=== PATIENT | female | born 1935 | race Caucasian/White ===

== ENCOUNTER 2018-03-05 16:27 | Emergency (ER) | payer MEDICARE ==
--- NOTE | 2018-03-05 18:38 | ED ---
Complex/Multi-Sys Presentation - HPI Summary HPI Summary: 82 field presents to ED brought in by ambulance after sustaining a fall while at nursing facility around 4 PM today. It was a witnessed fall was mechanical patient tripped over something on the ground and fell forward landing on her knees and hitting her face on the carpeted floor. She sustained an abrasion to left cheek. Denies any pain. No loss of consciousness. Patient does have Alzheimer's. Normal mentation per nursing staff and daughter. Acting appropriately. Is not on blood thinners. No complaints of pain otherwise. No nausea or vomiting. No vision changes. No epistaxis. - History Of Current Complaint Chief Complaint: EDGeneral Time Seen by Provider: 03/05/18 17:50 Hx Obtained From: Patient, Family/Salesperson Meats - Daughter and nursing facility manager flight Onset/Duration: Sudden Onset Timing: Intermittent, Lasting:, Minutes Severity Currently: None Severity Initially: Mild Location: Negative Character: Unable To Describe - none Aggravating Factor(s): none Alleviating Factor(s): none Associated Signs And Symptoms: Negative: Syncope, Headache, Nausea, Vomiting - Allergies/Home Medications Allergies/Adverse Reactions: Allergies Allergy/AdvReac Type Severity Reaction Status Date / Time midazolam Allergy Unknown Verified 03/05/18 17:13 Reaction Details Home Medications: Home Medications Acetaminophen [Acetaminophen Extra Strength] 500 mg PO BID 03/05/18 [History Confirmed 03/05/18] Amiodarone TAB* [Cordarone TAB*] 100 mg PO QAM 03/05/18 [History Confirmed 03/05] Aspirin EC TAB* [Ecotrin EC Low Dose 81 MG*] 81 mg PO DAILY 03/05/18 [History Confirmed 03/05/18] Carvedilol TAB* [Coreg TAB*] 6.25 mg PO BID 03/05/18 [History Confirmed 03/05/18 ] Cholecalciferol TAB* [Vitamin D TAB*] 50,000 unit PO MONTHLY 03/05/18 [History Confirmed 03/05/18] Donepezil TAB* [Aricept 5 MG TAB*] 10 mg PO QPM 03/05/18 [History Confirmed ] Folic Acid TAB* [Folvite TAB*] 1 mg PO QAM 03/05/18 [History Confirmed 03/05/18] Furosemide TAB* [Lasix TAB*] 20 mg PO QAM 03/05/18 [History Confirmed 03/05/18] Methotrexate TAB* 7.5 mg PO WEEKLY 03/05/18 [History Confirmed 03/05/18] Omeprazole CAP* [Prilosec CAP* 20 MG] 20 mg PO DAILY 03/05/18 [History Confirmed 03/05/18] PARoxetine HCL TAB* [Paxil TAB*] 10 mg PO DAILY 03/05/18 [History Confirmed ] Simvastatin TAB(NF) [Zocor(NF)] 20 mg PO DAILY 03/05/18 [History Confirmed 03/05] amLODIPine TAB* [Norvasc 5 mg TAB*] 5 mg PO DAILY 03/05/18 [History Confirmed ] glipiZIDE TAB* [Glucotrol TAB*] 10 mg PO BID 03/05/18 [History Confirmed ] PMH/Surg Hx/FS Hx/Imm Hx Endocrine/Hematology History: Reports: Hx Anticoagulant Therapy, Hx Diabetes - TYPE II- ON ORAL MEDICATION Denies: Hx Thyroid Disease Cardiovascular History: Reports: Hx Congestive Heart Failure - X 1 - TREATED FOR 1 1/2 YEARS AGO-ON MEDICATION FOR, Hx Hypercholesterolemia, Hx Hypertension - ON MEDICATION FOR, Other Cardiovascular Problems/Disorders - ATRIAL FIBRILLATION- AT THE TIME OF CONGESTIVE HEART FAILURE Respiratory History: Denies: Hx Asthma, Hx Chronic Obstructive Pulmonary Disease (COPD) GI History: Reports: Hx Gastroesophageal Reflux Disease - PRILOSEC Denies: Hx Ulcer Musculoskeletal History: Reports: Hx Arthritis - rheumatoid arthritis ON METHOTREXATE, Hx Rheumatoid Arthritis, Other Musculoskeletal History - rheumatoid arthritis ON METHOTREXATE Denies: Hx Osteoporosis Sensory History: Reports: Hx Cataracts - had cataract sx both eyes Denies: Hx Contacts or Glasses, Hx Hearing Aid Opthamlomology History: Reports: Hx Cataracts - had cataract sx both eyes Denies: Hx Contacts or Glasses Neurological History: Reports: Hx Dementia, Other Neuro Impairments/Disorders - ALZHEIMERS DISEASE Psychiatric History: Reports: Hx Depression - HX r/t ALZHEIMERS- DAUGHTERS STATES NO MEDICATION NOW - Surgical History Surgery Procedure, Year, and Place: total right shoulder replacement. LEFT BROKEN LEG WITH PINNING. R eye cataract surgery w new lens (May 2014). L eye catarct sx 2014 Hx Anesthesia Reactions: Yes - VERSED - Immunization History Date of Tetanus Vaccine: Unk Date of Influenza Vaccine: Fall 2012 Infectious Disease History: No Infectious Disease History: Denies: Hx Hepatitis, Hx Human Immunodeficiency Virus (HIV), Traveled Outside the US in Last 30 Days - Family History Known Family History: Positive: None - Social History Alcohol Use: None Substance Use Type: Reports: None Smoking Status (MU): Former Smoker Amount Used/How Often: ? Have You Smoked in the Last Year: No Review of Systems - ROS Summary Review of Systems Summary: asked patient and caregivers Constitutional: Negative ENT: Negative Cardiovascular: Negative Respiratory: Negative Gastrointestinal: Negative Musculoskeletal: Negative Positive: Other - abrasion cheek Neurological: Negative All Other Systems Reviewed And Are Negative: Yes Physical Exam Triage Information Reviewed: Yes Vital Signs On Initial Exam: Initial Vitals Temp Pulse Resp BP Pulse Ox 98.6 F 60 20 132/67 93 03/05/18 16:35 03/05/18 16:35 03/05/18 16:35 03/05/18 16:35 03/05/18 16:35 Vital Signs Reviewed: Yes Completion Of Physical Exam Limited Due To: Dementia Appearance: Positive: Well-Appearing, No Pain Distress, Well-Nourished Skin: Positive: Warm, Skin Color Reflects Adequate Perfusion, Dry, Erythema @ - superficial abrasion noted on left cheek and left forehead, no active bleeding, non tender, slight bruising over the left forehead, no edema.. Negative: Cold, Cyanosis @, Pale Head/Face: Positive: Normal Head/Face Inspection, Other - no racoon eyes or battles signs Eyes: Positive: Normal, EOMI, HECTOR, Conjunctiva Clear ENT: Positive: Normal ENT inspection, Hearing grossly normal, Pharynx normal, TMs normal, Other - Facial bones nontender on palpation. Negative: Nasal congestion, Nasal drainage, TM bulging, TM dull, TM red Neck: Positive: Supple, Nontender Respiratory/Lung Sounds: Positive: Clear to Auscultation, Breath Sounds Present. Negative: Rales, Rhonchi, Fatigue Cardiovascular: Positive: Normal, Pulses are Symmetrical in both Upper and Lower Extremities. Negative: Murmur, Rub Abdomen Description: Positive: Nontender, Soft Bowel Sounds: Positive: Present Musculoskeletal: Positive: Normal, Strength/ROM Intact. Negative: Limited @, Interruption @, Pain @ Neurological: Positive: Normal - acting appropriately for age, Sensory/Motor Intact, CN Intact II-III, Reflexes Intact, NV Bundle Intact Distally, Normal Gait. Negative: Alert, Oriented to Person Place, Time - due to dementia - [place] Coma Scale Best Eye Response: 4 - Spontaneous Best Motor Response: 6 - Obeys Commands Best Verbal Response: 4 - Confused - dementia, patient's baseline Coma Scale Total: 14 Diagnostics - Vital Signs Vital Signs Temp Pulse Resp BP Pulse Ox 03/05/18 16:36 98.6 F 60 18 132/67 93 03/05/18 16:35 98.6 F 60 20 132/67 93 - Laboratory Lab Statement: Any lab studies that have been ordered have been reviewed, and results considered in the medical decision making process. Complex Multi-Symp Course/Dx Course Of Treatment: abrasions irrigated with normal saline, triple antibiotic ointment applied. appears to be without injury. Normal physical exam and baseline mental status. Discussed imaging with daughter however does not appear necessary. Daughter agrees. No significant findings of trauma or deformity. Patient is acting appropriately and moving all extremities without difficulty. Facial bones nontender. No hematoma on scalp. Is not on blood thinners. Aware worsening signs and symptoms to watch out for. Keep wound clean and dry and apply triple antibiotic ointment. No other concerns at this time. Normal vital signs and physical exam. - Diagnoses Differential Diagnoses/HQI/PQRI: Other - Fall, abrasion, head injury, normal exam Provider Diagnoses: Fall, Facial abrasion Discharge - Sign-Out/Discharge Documenting (check all that apply): Discharge - Discharge Plan Condition: Stable Disposition: HOME Patient Education Materials: Fall Prevention for Older Adults (ED), Abrasion ( ED) Referrals: Lynn Whitlock MD [Primary Care Provider] - Additional Instructions: Keep wound clean and dry. Apply triple antibiotic ointment on wound. Any new or worsening symptoms please seek medical attention promptly (vomiting, altered mental status, unequal pupil size etc). Follow up with PCP for re-check in a few days. - Billing Disposition and Condition Condition: STABLE Disposition: HOME
[2018-03-05 19:09] VITALS: BP 122/76
== END 2018-03-05 19:07 | disposition home or self-care (01) ==
LOC: ED 16:27
DX: S00.81XA Abrasion of other part of head, initial encounter (principal); W01.0XXA Fall on same level from slipping, tripping and stumbling without subsequent striking against object, initial encounter; Y93.9 Activity, unspecified; Y92.129 Unspecified place in nursing home as the place of occurrence of the external cause; E11.9 Type 2 diabetes mellitus without complications; Z79.84 Long term (current) use of oral hypoglycemic drugs; I50.9 Heart failure, unspecified; I48.91 Unspecified atrial fibrillation; Z79.01 Long term (current) use of anticoagulants; Z79.82 Long term (current) use of aspirin; E78.00 Pure hypercholesterolemia, unspecified; I10 Essential (primary) hypertension; K21.9 Gastro-esophageal reflux disease without esophagitis; G30.9 Alzheimer's disease, unspecified; F02.80 Dementia in other diseases classified elsewhere, unspecified severity, without behavioral disturbance, psychotic disturbance, mood disturbance, and anxiety; F32.9 Major depressive disorder, single episode, unspecified; Z96.611 Presence of right artificial shoulder joint; Z88.8 Allergy status to other drugs, medicaments and biological substances; Z87.891 Personal history of nicotine dependence
CPT/HCPCS: 99282

== ENCOUNTER 2018-05-19 15:25 | Emergency (ER) | payer MEDICARE ==
[2018-05-19 15:32] VITALS: BP 170/88
[2018-05-19] MEDS ORDERED: Acetaminophen TAB* 325 MG PO ONE (15:38)
--- NOTE | 2018-05-19 16:44 | RAD ---
Indication: Left rib pain. 3 views of left ribs are reviewed. There is deformity of the left ninth and eighth ribs. This appears to BE due to old injury no recent fracture. No pneumothorax is noted. IMPRESSION: Deformity of the left eighth and ninth rib which May BE due to old fracture.
--- NOTE | 2018-05-19 17:25 | ED ---
Savanah Phillips Tenzin, scribed for Talha Medina MD on 05/19/18 at 1541 . Complex/Multi-Sys Presentation - HPI Summary HPI Summary: Pt is an 82 years old here from [facility] via EMS. Per EMS staff, she is c/o left rib pain and increased trouble ambulating. Pt denies fever, chills, or D/V /N. No aggravating factors were noted. At ED, during her physical exam she was able to stand without discomfort. Patient has a hx of Dementia. Pt is a level 5 caveat pt. - History Of Current Complaint Chief Complaint: EDGeneral Time Seen by Provider: 05/19/18 15:28 Hx Obtained From: Patient Associated Signs And Symptoms: Negative: Nausea, Vomiting, Diarrhea, Fever - Allergies/Home Medications Allergies/Adverse Reactions: Allergies Allergy/AdvReac Type Severity Reaction Status Date / Time midazolam Allergy Unknown Verified 03/05/18 17:13 Reaction Details PMH/Surg Hx/FS Hx/Imm Hx Endocrine/Hematology History: Reports: Hx Anticoagulant Therapy, Hx Diabetes - TYPE II- ON ORAL MEDICATION Denies: Hx Thyroid Disease Cardiovascular History: Reports: Hx Congestive Heart Failure - X 1 - TREATED FOR 1 1/2 YEARS AGO-ON MEDICATION FOR, Hx Hypercholesterolemia, Hx Hypertension - ON MEDICATION FOR, Other Cardiovascular Problems/Disorders - ATRIAL FIBRILLATION- AT THE TIME OF CONGESTIVE HEART FAILURE Respiratory History: Denies: Hx Asthma, Hx Chronic Obstructive Pulmonary Disease (COPD) GI History: Reports: Hx Gastroesophageal Reflux Disease - PRILOSEC Denies: Hx Ulcer Musculoskeletal History: Reports: Hx Arthritis - rheumatoid arthritis ON METHOTREXATE, Hx Rheumatoid Arthritis, Other Musculoskeletal History - rheumatoid arthritis ON METHOTREXATE Denies: Hx Osteoporosis Sensory History: Reports: Hx Cataracts - had cataract sx both eyes Denies: Hx Contacts or Glasses, Hx Hearing Aid Opthamlomology History: Reports: Hx Cataracts - had cataract sx both eyes Denies: Hx Contacts or Glasses Neurological History: Reports: Hx Dementia, Other Neuro Impairments/Disorders - ALZHEIMERS DISEASE Psychiatric History: Reports: Hx Depression - HX r/t ALZHEIMERS- DAUGHTERS STATES NO MEDICATION NOW - Surgical History Surgery Procedure, Year, and Place: total right shoulder replacement. LEFT BROKEN LEG WITH PINNING. R eye cataract surgery w new lens (May 2014). L eye catarct sx 2014 Hx Anesthesia Reactions: Yes - VERSED - Immunization History Date of Tetanus Vaccine: Unk Date of Influenza Vaccine: Fall 2012 Infectious Disease History: No Infectious Disease History: Denies: Hx Hepatitis, Hx Human Immunodeficiency Virus (HIV), Traveled Outside the US in Last 30 Days - Family History Known Family History: Positive: None - Social History Alcohol Use: None Substance Use Type: Reports: None Smoking Status (MU): Former Smoker Amount Used/How Often: ? Have You Smoked in the Last Year: No Review of Systems - ROS Summary Review of Systems Summary: Pt is a level 5 caveat patient. Negative: Fever, Chills Negative: Vomiting, Diarrhea, Nausea Positive: Other - Left rib pain. All Other Systems Reviewed And Are Negative: Yes Physical Exam - Summary Physical Exam Summary: Appearance: Well appearing, no pain distress Skin: warm, dry, reflects adequate perfusion, scar on the right based of her neck, no rash or lesions. Head/face: normal Eyes: EOMI, HECTOR ENT: normal Neck: supple, non-tender Respiratory: CTA, breath sounds present, unlabored breathing, lungs are clear. Cardiovascular: RRR, pulses symmetrical Abdomen: Left lower rib is tender. Bowel Sounds: present Musculoskeletal: normal, strength/ROM intact, Stands without discomfort. Neuro: normal, sensory motor intact, A&Ox3 Triage Information Reviewed: Yes Vital Signs On Initial Exam: Initial Vitals Temp Pulse Resp BP Pulse Ox 98.3 F 65 16 170/88 99 05/19/18 15:28 05/19/18 15:28 05/19/18 15:28 05/19/18 15:28 05/19/18 15:28 Vital Signs Reviewed: Yes Diagnostics - Vital Signs Vital Signs Temp Pulse Resp BP Pulse Ox 05/19/18 15:28 98.3 F 65 16 170/88 99 - Laboratory Lab Statement: Any lab studies that have been ordered have been reviewed, and results considered in the medical decision making process. - Radiology Ribs with Chest X RAY Radiology Interpretation Completed By: Radiologist - IMPRESSION: Deformity of the left eighth and ninth rib which May BE due to old fracture. Re-Evaluation - Re-Evaluation First Eval Change: Improved Complex Multi-Symp Course/Dx Course Of Treatment: Patient with discomfort in the left lateral low chest wall. X-ray shows evidence of old appearing rib fracture with callus. Treated with Tylenol here with relief. Continue same outpatient while in long term. Return to [place] - Diagnoses Provider Diagnoses: Dementia, Rib fracture Discharge - Sign-Out/Discharge Documenting (check all that apply): Discharge/Admit/Transfer - Discharge. - Discharge Plan Condition: Good Disposition: [facility]ACILITY Patient Education Materials: Rib Fracture (ED) Referrals: Lynn Whitlock MD [Primary Care Provider] - Additional Instructions: Return to long term at [place]. Tylenol, ibuprofen as needed for pain. Return if worse, new symptoms or other concerns. - Billing Disposition and Condition Condition: GOOD Disposition: [facility] The documentation as recorded by the Savanah starr Tenzin accurately reflects the service I personally performed and the decisions made by me, Talha Medina MD.
== END 2018-05-19 16:54 ==
LOC: ED 15:25
DX: S22.42XA Multiple fractures of ribs, left side, initial encounter for closed fracture (principal); F03.90 Unspecified dementia, unspecified severity, without behavioral disturbance, psychotic disturbance, mood disturbance, and anxiety; E11.9 Type 2 diabetes mellitus without complications; I11.0 Hypertensive heart disease with heart failure; I50.9 Heart failure, unspecified; K21.9 Gastro-esophageal reflux disease without esophagitis; M06.9 Rheumatoid arthritis, unspecified; Z87.891 Personal history of nicotine dependence; Z79.84 Long term (current) use of oral hypoglycemic drugs; Z79.899 Other long term (current) drug therapy; Z88.8 Allergy status to other drugs, medicaments and biological substances
CPT/HCPCS: 99283; A9270-GY

== ENCOUNTER 2018-08-02 18:09 | Emergency (ER) | payer MEDICARE ==
[2018-08-02] MEDS ORDERED: NS 0.9% 1000 ML* 1,000 ML IV ONE (18:16)
[2018-08-02] MEDS ORDERED: Ondansetron INJ* 2 MG/ML VIAL IV ONE (18:16)
--- NOTE | 2018-08-02 19:21 | RAD ---
EXAM: CT Abdomen and Pelvis Without Intravenous Contrast CLINICAL HISTORY: 83 years old, female; Signs and symptoms; Vomiting; Patient HX: Dementia, dm, chf; Additional info: Vomiting/diarrhea TECHNIQUE: Axial computed tomography images of the abdomen and pelvis without intravenous contrast. All CT scans at this facility use at least one of these dose optimization techniques: automated exposure control; mA and/or kV adjustment per patient size (includes targeted exams where dose is matched to clinical indication); or iterative reconstruction. Coronal and sagittal reformatted images were created and reviewed. COMPARISON: RENAL COM US RENAL COMPLETE 12/17/2014 11:[address] performed in November 2014. FINDINGS: Lung bases: Unremarkable. No mass. No consolidation. Mediastinum: Large hiatal and paraesophageal hernia, similar in appearance to the comparison chest CT exam. ABDOMEN: Liver: Unremarkable. Gallbladder and bile ducts: Unremarkable. No calcified stones. No ductal dilation. Pancreas: Unremarkable. No ductal dilation. Spleen: Unremarkable. No splenomegaly. Adrenals: Unremarkable. No mass. Kidneys and ureters: Unremarkable. No obstructing stones. No hydronephrosis. Stomach and bowel: Unremarkable. No obstruction. No mucosal thickening. PELVIS: Appendix: Normal appendix. Bladder: Unremarkable. No stones. Reproductive: Bilateral renal cysts measuring approximately 4 cm. No change in appearance from the comparison CT examination. The calcified uterine fibroid. ABDOMEN and PELVIS: Intraperitoneal space: Unremarkable. No free air. No significant fluid collection. Bones/joints: Degenerative changes of both hips. Degenerative changes and scoliosis of the lumbosacral spine. Chronic compression deformity of multiple lumbar vertebral bodies with absent paraspinous hemorrhage. No dislocation. Soft tissues: Unremarkable. Vasculature: Atherosclerotic calcification. No abdominal aortic aneurysm. Lymph nodes: Unremarkable. No enlarged lymph nodes. IMPRESSION: 1. No acute intra-abdominal findings.
--- NOTE | 2018-08-02 19:26 | ED ---
Complex/Multi-Sys Presentation - HPI Summary HPI Summary: Patient is a 83 y/o F w/ c/o N/V onsetting today in the afternoon. Patient is demented and level 5 caveat. HPI is obtained from EMS and [place] caregiver, where patient resides. Caregiver denies patient experiencing fever, coughing, and difficulty breathing. Caregiver is unaware of any recent change to patient' s medication. In room BP is 209/79. Patient is reported to have had normal bowel movements. In room, patient states that she feels "sick to her stomach" but denies pain when asked if she is in pain. Per triage, an unknown medication was reportedly given prior to patient being sent, EMS reports that patient vomited it up. 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 Negative: Cough, Fever - Allergies/Home Medications Allergies/Adverse Reactions: Allergies Allergy/AdvReac Type Severity Reaction Status Date / Time midazolam Allergy Unknown Verified 08/02/18 18:14 Reaction Details PMH/Surg Hx/FS Hx/Imm Hx Endocrine/Hematology History: Reports: Hx Anticoagulant Therapy, Hx Diabetes - TYPE II- ON ORAL MEDICATION Denies: Hx Thyroid Disease Cardiovascular History: Reports: Hx Congestive Heart Failure - X 1 - TREATED FOR 1 1/2 YEARS AGO-ON MEDICATION FOR, Hx Hypercholesterolemia, Hx Hypertension - ON MEDICATION FOR, Other Cardiovascular Problems/Disorders - ATRIAL FIBRILLATION- AT THE TIME OF CONGESTIVE HEART FAILURE Respiratory History: Denies: Hx Asthma, Hx Chronic Obstructive Pulmonary Disease (COPD) GI History: Reports: Hx Gastroesophageal Reflux Disease - PRILOSEC Denies: Hx Ulcer Musculoskeletal History: Reports: Hx Arthritis - rheumatoid arthritis ON METHOTREXATE, Hx Rheumatoid Arthritis, Other Musculoskeletal History - rheumatoid arthritis ON METHOTREXATE Denies: Hx Osteoporosis Sensory History: Reports: Hx Cataracts - had cataract sx both eyes Denies: Hx Contacts or Glasses, Hx Hearing Aid Opthamlomology History: Reports: Hx Cataracts - had cataract sx both eyes Denies: Hx Contacts or Glasses Neurological History: Reports: Hx Dementia, Other Neuro Impairments/Disorders - ALZHEIMERS DISEASE Psychiatric History: Reports: Hx Depression - HX r/t ALZHEIMERS- DAUGHTERS STATES NO MEDICATION NOW - Surgical History Surgery Procedure, Year, and Place: total right shoulder replacement. LEFT BROKEN LEG WITH PINNING. R eye cataract surgery w new lens (May 2014). L eye catarct sx 2015 Hx Anesthesia Reactions: Yes - VERSED - Immunization History Date of Tetanus Vaccine: Unk Date of Influenza Vaccine: Fall 2012 Infectious Disease History: No Infectious Disease History: Denies: Hx Hepatitis, Hx Human Immunodeficiency Virus (HIV), Traveled Outside the US in Last 30 Days - Family History Known Family History: Negative: Blood Disorder - Social History Alcohol Use: None Substance Use Type: Reports: None Smoking Status (MU): Former Smoker Amount Used/How Often: ? Have You Smoked in the Last Year: No Review of Systems Negative: Fever Positive: Other - NEGATIVE: difficulty breathing . Negative: Cough Positive: Vomiting, Nausea, Other - NEGATIVE: abnormal bowel movement All Other Systems Reviewed And Are Negative: No - Comments Additional Review of Systems Comments: level 5 caveat due to dementia Physical Exam - Summary Physical Exam Summary: Appearance: Well appearing, no pain distress; patient is demented, level 5 caveat Skin: warm, dry, reflects adequate perfusion Head/face: normal Eyes: EOMI, HECTOR ENT: normal Neck: supple, non-tender Respiratory: CTA, breath sounds present Cardiovascular: RRR, pulses symmetrical Abdomen: non-tender, soft Bowel Sounds: present Musculoskeletal: strength/ROM intact; tremors in BUE Neuro: normal, sensory motor intact, alert but not oriented to person, place, or time Triage Information Reviewed: Yes Vital Signs On Initial Exam: Initial Vitals Temp Pulse Resp BP Pulse Ox 98.1 F 88 16 209/79 96 08/02/18 18:12 08/02/18 18:12 08/02/18 18:12 08/02/18 18:12 08/02/18 18:12 Vital Signs Reviewed: Yes Diagnostics - Vital Signs Vital Signs Temp Pulse Resp BP Pulse Ox 08/02/18 18:12 98.1 F 88 16 209/79 96 - Laboratory Result Diagrams: 08/02/18 20:19 08/02/18 20:19 Lab Statement: Any lab studies that have been ordered have been reviewed, and results considered in the medical decision making process. - CT abd/pel CT CT Interpretation: No Acute Changes CT Interpretation Completed By: ED Physician - no acute intra-abdominal findings ; this report was reviewed by ED physician. - EKG 1844 Cardiac Rate: NL - rate of 87 BPM EKG Rhythm: Sinus Rhythm ST Segment: Non-Specific EKG Interpretation: baseline artifact, 1st degree AV block, long QT Re-Evaluation - Re-Evaluation First Eval Re-Evaluation Time: 20:20 Comment: punture was done on left external JVD for blood that was needed for labs. Second Eval Re-Evaluation Time: 20:58 Comment: Labs reviewed; patient will be discharged to home. Plan of discharge and instructions were given to [place] caregiver; she understands and agrees with plan. Complex Multi-Symp Course/Dx Course Of Treatment: Well-hydrated appearing dementia patient who is unable to contribute to history. CT of abdomen and pelvis is normal. No diarrhea here. Renal function is actually improved over previous. She was hydrated here and given Zofran and had no vomiting. There is no tenderness of the abdomen or difficulty breathing. She has no change on EKG. Discharged in good condition after discussion with daughter who is power of ip attorney. Returned to [facility]. - Diagnoses Differential Diagnoses/HQI/PQRI: Metabolic Abnormality, Urinary Tract Infection , Other - Dehydration, bowel obstruction Provider Diagnoses: Gastroenteritis, Advanced dementia Discharge - Sign-Out/Discharge Documenting (check all that apply): Patient Departure - discharge - Discharge Plan Condition: Improved Disposition: [facility] F[facility] Prescriptions: Ondansetron [Zofran Odt] 4 mg PO Q6H PRN #12 tab.rapdis PRN Reason: Nausea Patient Education Materials: Gastroenteritis (ED) Referrals: Lynn Whitlock MD [Primary Care Provider] - Additional Instructions: Keep well hydrated with gatorade G2 or Pedialyte. Imodium if this continues another 24hrs. Return if worse, new symptoms, weakness or other concerns. - Billing Disposition and Condition Condition: IMPROVED Disposition: [facility] - Attestation Statements Document Initiated by Scribe: Yes Documenting Scribe: Arpit Agee Provider For Whom Scribe is Documenting (Include Credential): Talha Medina MD Scribe Attestation: I, Arpit Agee , scribed for Talha Medina MD on 08/02/18 at 2110. Scribe Documentation Reviewed: Yes Provider Attestation: The documentation as recorded by the scribe, Arpit Agee accurately reflects the service I personally performed and the decisions made by me, Talha Medina MD
[2018-08-02 20:36] LABS: ABS Basophils 0.1 10^3/ul (0-0.2); ABS Eosinophils 0 10^3/ul (0-0.6); ABS Lymphocytes 0.4 10^3/ul (1.0-4.8); ABS Neutrophils 11.1 10^3/ul (1.5-7.7); ABS Nucleated RBC 0 10^3/ul; Eosinophil % 0 % (0-6); Hematocrit 34 % (35-47); Hemoglobin 11.3 g/dl (12.0-16.0); Mean Corpuscular HGB Conc 33 g/dl (31-36); Mean Corpuscular Hemoglobin 31 pg (27-31); Mean Corpuscular Volume 92 fL (80-97); Mean Platelet Volume 7.6 um3 (7.4-10.4); Nucleated Red Blood Cells % 0.1; Platelet Count 278 10^3/ul (150-450); Red Blood Count 3.69 10^6/ul (4.00-5.40); Red Cell Distribution Width 17 % (10.5-15); White Blood Count 12.5 10^3/ul (3.5-10.8)
[2018-08-02 20:41] LABS: INR 0.9 (0.77-1.02)
[2018-08-02 20:47] LABS: EGFR Non-African American 53.6 (>60)
[2018-08-02 21:31] VITALS: BP 146/70
== END 2018-08-02 21:31 ==
LOC: ED 18:09
CPT/HCPCS: 36415; 74176; 80053; 83605; 83690; 84484; 85025; 85610; 86140; 93005; J2405

== ENCOUNTER 2018-08-06 14:44 | Inpatient (IN) | payer MEDICARE ==
[2018-08-06] MEDS ORDERED: NS 0.9% 1000 ML* 1,000 ML IV ONE ×2 (15:17→16:19)
--- NOTE | 2018-08-06 15:21 | ED ---
Altered Mental Status - HPI Summary HPI Summary: This patient is an 83 year old F presenting to [facility] accompanied by the programming equipment operator of [facility] with a chief complaint of AMS. Per EMS, blood sugar level was undeterminable due to exceeding the sensors maximum. Pt is named Jolie but only responds to Corey. The [facility] staff endorse that pt has had continuing diarrhea, decreased PO intake, and lethargy; pt was in ED 08/02/18 for GI sx. PMHx Alzheimers disease. Level 5 caviat: Full HPI unobtainable due to pts AMS. - History Of Current Complaint Chief Complaint: EDAltMentalStatus Stated Complaint: HIGH BLOOD SUGAR Time Seen by Provider: 08/06/18 14:55 Hx Obtained From: Family/Integrated Program Teacher, EMS Onset/Duration: Unknown Timing: Constant Severity Initially: Moderate Severity Currently: Moderate Character: Confusion, Responsiveness, Lethargy Aggravating Factor(s): Other - elevated glucose Alleviating Factor(s): Unknown Associated Signs And Symptoms: Negative: Fever Related History: Recent Illness - in ED 08/02/18 - Allergies/Home Medications Allergies/Adverse Reactions: Allergies Allergy/AdvReac Type Severity Reaction Status Date / Time midazolam Allergy Unknown Verified 08/06/18 15:16 Reaction Details Home Medications: Home Medications Acetaminophen [Acetaminophen Extra Strength] 500 mg PO Q6HR PRN 08/06/18 [ History Confirmed 08/06/18] Loperamide HCl [Imodium A-D] 2 mg PO DAILY PRN 08/06/18 [History Confirmed 08/06] Zinc Oxide 40% (TOPICAL)* 1 applic TOPICAL BID 08/06/18 [History Confirmed 08/06] guaiFENesin LIQ* [Robitussin*] 10 ml PO Q4H PRN 08/06/18 [History Confirmed ] PMH/Surg Hx/FS Hx/Imm Hx Endocrine/Hematology History: Reports: Hx Anticoagulant Therapy, Hx Diabetes - TYPE II- ON ORAL MEDICATION Denies: Hx Thyroid Disease Cardiovascular History: Reports: Hx Congestive Heart Failure - X 1 - TREATED FOR 1 1/2 YEARS AGO-ON MEDICATION FOR, Hx Hypercholesterolemia, Hx Hypertension - ON MEDICATION FOR, Other Cardiovascular Problems/Disorders - ATRIAL FIBRILLATION- AT THE TIME OF CONGESTIVE HEART FAILURE Respiratory History: Denies: Hx Asthma, Hx Chronic Obstructive Pulmonary Disease (COPD) GI History: Reports: Hx Gastroesophageal Reflux Disease - PRILOSEC Denies: Hx Ulcer Musculoskeletal History: Reports: Hx Arthritis - rheumatoid arthritis ON METHOTREXATE, Hx Rheumatoid Arthritis, Other Musculoskeletal History - rheumatoid arthritis ON METHOTREXATE Denies: Hx Osteoporosis Sensory History: Reports: Hx Cataracts - had cataract sx both eyes Denies: Hx Contacts or Glasses, Hx Deafness, Hx Hearing Aid Opthamlomology History: Reports: Hx Cataracts - had cataract sx both eyes Denies: Hx Contacts or Glasses EENT History: Denies: Hx Deafness Neurological History: Reports: Hx Dementia - ALZHEIMERS DISEASE Psychiatric History: Reports: Hx Depression - HX r/t ALZHEIMERS- DAUGHTERS STATES NO MEDICATION NOW - Surgical History Surgery Procedure, Year, and Place: total right shoulder replacement. LEFT BROKEN LEG WITH PINNING. R eye cataract surgery w new lens (May 2014). L eye catarct sx 2015 Hx Anesthesia Reactions: Yes - VERSED - Immunization History Date of Tetanus Vaccine: Unk Date of Influenza Vaccine: Fall 2012 Infectious Disease History: No Infectious Disease History: Denies: Hx Hepatitis, Hx Human Immunodeficiency Virus (HIV), Traveled Outside the [place] in Last 30 Days - Family History Known Family History: Positive: Unknown - Due to level 5 AMS - Social History Occupation: Retired Lives: Assisted Living Alcohol Use: None Hx Substance Use: No Substance Use Type: Reports: None Hx Tobacco Use: Yes Smoking Status (MU): Former Smoker Amount Used/How Often: ? Have You Smoked in the Last Year: No Review of Systems - ROS Summary Review of Systems Summary: Level 5 caveat: Full ROS unobtainable due to pt's AMS. Positive: Other - lethargy. Negative: Fever Positive: Diarrhea, Other - decreased PO intake Positive: no symptoms reported Neurological: Other - AMS All Other Systems Reviewed And Are Negative: No Physical Exam - Summary Physical Exam Summary: GENERAL: Patient is a well-developed and nourished F who is lying comfortable in the stretcher. Patient is not in any acute respiratory distress. HEAD AND FACE: Normocephalic EYES: PERRLA, EOMI x 2. Pupils pinpoint. EARS: Hearing grossly intact. MOUTH: Oropharynx within normal limits. NECK: Supple, trachea is midline, no adenopathy, no JVD, no carotid bruit. CHEST: Symmetric, no tenderness at palpation LUNGS: Clear to auscultation bilaterally. No wheezing or crackles. CVS: Regular rate and rhythm, S1 and S2 present, no murmurs or gallops appreciated. ABDOMEN: Soft, non-tender. Bowel sounds are normal. No abdominal abnormal pulsations. EXTREMITIES: Full ROM in all major joints, no edema, no cyanosis or clubbing. NEURO: Pt is neither alert nor oriented. GCS 12, but most demerits are baseline. SKIN: Dry and warm Triage Information Reviewed: Yes Vital Signs On Initial Exam: Initial Vitals Temp Pulse Resp BP Pulse Ox 97.7 F 76 26 130/66 95 08/06/18 15:03 08/06/18 15:03 08/06/18 15:03 08/06/18 15:03 08/06/18 15:03 Vital Signs Reviewed: Yes Completion Of Physical Exam Limited Due To: Dementia, Altered Mental Status, Level 5 - Abel Coma Scale Best Eye Response: 3 - To Speech Best Motor Response: 5 - Purposeful Movement Best Verbal Response: 4 - Confused Coma Scale Total: 12 Glascow Coma Scale Comments: Most of this is baseline anyhow. Diagnostics - Vital Signs Vital Signs Temp Pulse Resp BP Pulse Ox 08/06/18 15:03 97.7 F 76 26 130/66 95 - Laboratory Result Diagrams: 08/09/18 07:09 08/08/18 12:23 Lab Statement: Any lab studies that have been ordered have been reviewed, and results considered in the medical decision making process. - Radiology CXR Xray Interpretation: No Acute Changes Radiology Interpretation Completed By: Radiologist - Chronic findings similar in appearance the prior chest x-ray with interval appearance of costophrenic angle blunting which could indicate small right greater than left pleural effusions and/or atelectasis. Dr. Lane has reviewed this report. - CT Brain CT Interpretation: No Acute Changes, Positive (See Comments) CT Interpretation Completed By: Radiologist - Atrophy with chronic ischemic White matter change. Overall no changes noted since June 22, 2015. No acute changes are noted. Dr. Lane has reviewed this report. - EKG 1551 Cardiac Rate: NL - 77 EKG Rhythm: Sinus Rhythm ST Segment: Normal Ectopy: None EKG Interpretation: prolonged DE and prolonged QT intervals. Altered Mental Statu Course/Dx - Course Course Of Treatment: An 83-year-old F presents to the ED with a CC of AMS for an unknown amount of time. (+) diarrhea, decreased PO intake, lethargy. PMHx Alzheimer's, DM. Blood sugar per EMS was elevated off the charts. A CXR reveals Chronic findings similar in appearance the prior chest x-ray with interval appearance of costophrenic angle blunting which could indicate small right greater than left pleural effusions and/or atelectasis. An EKG reveals NSR at 77 BPM with prolonged QT and DE intervals. A CTB reveals atrophy with chronic ischemic white matter change. Overall no changes noted since June 22, 2015. No acute changes are noted. In the ED course, pt was given nl saline and started on an insulin drip. Pt's lab results show high WBC, high RDW, high neut %, low lymph %, glucose of 815, lactic acid of 4.0, and a trop of 0.04. Her VBG pH, pCO2, pHCO3, P02, O2sat, and base xs are all abnl. Case discussed with hospitalist. - Diagnoses Provider Diagnoses: Acute hyperglycemia, Hyperosmolality - Provider Notifications Discussed Care Of Patient With: Caleb Hawley Time Discussed With Above Provider: 16:39 Instructed by Provider To: Other - Accepts admission. - Critical Care Time Critical Care Time: 30-74 min Discharge - Sign-Out/Discharge Documenting (check all that apply): Patient Departure - admit - Discharge Plan Condition: Stable Disposition: ADMITTED TO [facility] - Billing Disposition and Condition Condition: STABLE Disposition: Admitted to [facility] - Attestation Statements Document Initiated by Scribe: Yes Documenting Scribe: Ezequiel Galeana Provider For Whom Angeli is Documenting (Include Credential): Dr. Bere Lane MD Scribe Attestation: Ezequiel Phillips, scribed for Dr. Bere Lane MD on 08/09/18 at 0744. Scribe Documentation Reviewed: Yes Provider Attestation: The documentation as recorded by the Ezequiel starr accurately reflects the service I personally performed and the decisions made by me, Dr. Bere Lane MD
[2018-08-06 15:28] LABS: ABS Basophils 0 10^3/ul (0-0.2); ABS Eosinophils 0 10^3/ul (0-0.6); ABS Lymphocytes 0.6 10^3/ul (1.0-4.8); ABS Monocytes 0.9 10^3/ul (0-0.8); ABS Neutrophils 11.6 10^3/ul (1.5-7.7); ABS Nucleated RBC 0 10^3/ul; Eosinophil % 0.1 % (0-6); Hematocrit 38 % (35-47); Hemoglobin 11.9 g/dl (12.0-16.0); Lymphocyte % 4.2 % (25-47); Mean Corpuscular HGB Conc 32 g/dl (31-36); Mean Corpuscular Hemoglobin 31 pg (27-31); Mean Corpuscular Volume 97 fL (80-97); Mean Platelet Volume 9.2 um3 (7.4-10.4); Nucleated Red Blood Cells % 0; Platelet Count 209 10^3/ul (150-450); Red Blood Count 3.89 10^6/ul (4.00-5.40); Red Cell Distribution Width 19 % (10.5-15)
[2018-08-06 15:33] LABS: INR 0.98 (0.77-1.02)
[2018-08-06 15:48] LABS: EGFR Non-African American 14.8 (>60)
--- NOTE | 2018-08-06 15:50 | RAD ---
INDICATION: Altered mental status COMPARISON: Most recent comparison chest x-rays dated July 09, 2016 TECHNIQUE: Single AP portable view of the chest was obtained. FINDINGS: Image quality is compromised due to the relative inferiority of a portable chest x-ray. Stable postoperative findings include an anatomically aligned right shoulder prosthesis. There is a mild degree of cardiomegaly. Stable coarse calcification is seen overlying the arch of the aorta. There is slight density at the right lung base which could be the consequence of poor inspiratory effort. There is a small degree of bibasilar costophrenic angle blunting in the AP view. Visualized bones are normal for the patient's age. IMPRESSION: Chronic findings similar in appearance the prior chest x-ray with interval appearance of costophrenic angle blunting which could indicate small right greater than left pleural effusions and/or atelectasis.
--- NOTE | 2018-08-06 16:11 | RAD ---
Indication: Confusion. CT of the brain performed without IV contrast. Ventricular structures are midline. No midline shift is noted. Central and cortical atrophy is noted. Periventricular lucency consistent with chronic ischemic White matter change is noted. Mastoid air cells and paranasal sinuses are otherwise unremarkable. When compared to previous exam of June 22, 2015 no significant change is noted. IMPRESSION: Atrophy with chronic ischemic White matter change. Overall no changes noted since June 22, 2015. No acute changes are noted.
[2018-08-06] MEDS ORDERED: Insulin IVPB 100 units/100 ml 100 UNITS/100 ML UNIT IVPB ONE (16:18)
[2018-08-06] MEDS ORDERED: NS 0.9% 1000 ML* 1,000 ML IV SCH (17:30)
[2018-08-06 19:39] LABS: EGFR Non-African American 17.2 (>60)
[2018-08-06 20:05] LABS: EGFR Non-African American 16.5 (>60)
[2018-08-06] MEDS ORDERED: Dextrose 50% Syringe 50 ML* 25 GM/50 ML SYRINGE IV PUSH PRN (20:06)
--- NOTE | 2018-08-06 20:09 | PN ---
Progress Note - Progress Note Date of Service: 08/06/18 Note: Anion gap closed, sodium elevated. Will transition to lantus and lispro, start 1/2NS at 150 cc/hr and repeat BMP. FOllow glucose closely. Allow diabetic diet. Paged for fever - now scoring on sepsis criteria- has dementia. Pyuria on U/A. Blood cx drawn in ED. Will start ceftriaxone to cover UTI. Repeat lactate and BMP.
[2018-08-06] MEDS: Donepezil TAB* 5 MG PO SCH (20:19)
[2018-08-06] MEDS: Carvedilol TAB* 6.25 MG PO SCH ×2 (20:19→20:27)
[2018-08-06] MEDS: Enoxaparin(*) 30 MG/0.3 ML SYR SUBCUT SCH (20:20)
--- NOTE | 2018-08-06 20:36 | RAD ---
EXAM: US Retroperitoneal Limited, Renal EXAM DATE/TIME: Exam ordered 08/06/2018 7:07 PM CLINICAL HISTORY: 83 years old, female; Signs and symptoms; Other: Renal failure; Additional info: Acute renal failure; Pt has dementia; Poor histori TECHNIQUE: Real-time ultrasound of the retroperitoneum (limited) with image documentation. COMPARISON: RENAL COM US RENAL COMPLETE 12/17/2014 11:54 AM FINDINGS: Right kidney: The right kidney measures 11.0 cm in its cephalocaudad dimension and 4.5 x 4.2 cm in diameter. No hydronephrosis or mass. There is a lower pole cyst measuring 3.0 x 4.3 x 3.2 cm. No stones. Left kidney: The left kidney measures 10.8 cm in its cephalocaudad dimension and 6.0 x 4.6 cm in diameter. No mass or hydronephrosis. There is an upper pole cyst measuring 3.6 x 3.0 x 3.7 cm. No stones. IMPRESSION: 1. Bilateral renal cysts which are similar to 12/17/2014. 2. Otherwise negative renal sonogram.
[2018-08-06] MEDS ORDERED: NS 0.45% 1000 ML BAG* 1,000 ML IV SCH (21:00)
[2018-08-06 21:12] LABS: Urine Appearance Cloudy; Urine Blood 2+ (Negative); Urine Color Yellow; Urine Ketones Negative (Negative); Urine Protein 2+(100 mg/dL) (Negative); Urine Red Blood Cell 3+(>10/hpf) (Absent); Urine Specific Gravity 1.009 (1.010-1.030); Urine Urobilinogen Negative (Negative); Urine White Blood Cell 3+(>20/hpf) (Absent)
[2018-08-06] MEDS: Insulin GLARGINE(*) 1 UNITS UNIT SUBCUT SCH (21:17)
[2018-08-06] MEDS: Zinc Oxide 40% (TOPICAL)* TUBE TOPICAL SCH (21:18)
[2018-08-06] MEDS: Insulin LISPRO* 1 UNITS UNIT SUBCUT SCH (21:18)
--- NOTE | 2018-08-06 21:43 | HP ---
HISTORY AND PHYSICAL: DATE OF ADMISSION: 08/06/18. CHIEF COMPLAINT: Mental status change as well as diaphoresis. HISTORY OF PRESENT ILLNESS/HOSPITAL COURSE: The patient is an 83-year-old lady with history of type 2 diabetes mellitus not on insulin and well controlled, previously on Januvia and glipizide, CKD as well as previous history of UTIs as well as history of dementia who presented with the above chief complaint. Unfortunately, given her severe dementia, she is a poor historian and her daughter at bedside only visits her once a week who unfortunately does not know the most recent details of her visit today. On review of [facility]'s report where she currently lives, it mentions that she has had a "GI bug" that started on Saturday starting at , causing diarrhea and then she proceeded to not to be able to bear weight nor walk and became diaphoretic leading to her presentation in the ED for further evaluation and hence her subsequent admission. In the ED, she was found to be in HHS with fingersticks of 800 with lactic acidosis of 4. She was subsequently placed on insulin drip as well as bolus with 2 L of normal saline. REVIEW OF SYSTEMS: On review of systems, patient unfortunately cannot provide a reliable 14-point of review of systems. PAST MEDICAL AND SURGICAL HISTORY: Cardiomyopathy, AFib, diabetes mellitus, CKD stage 3b, hypertension, HLD, rheumatoid arthritis, GERD, dementia, anxiety , essential tremor, osteoporosis, previous history of UTIs, hypovolemia secondary to nausea and vomiting in the past. Left lower extremity ORIF and right shoulder replacement. ALLERGIES: MIDAZOLAM. SOCIAL HISTORY: No history of tobacco. Social alcohol use. No recreational drugs. 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 Her MOLST form had been updated and reviewed in this admission. FAMILY HISTORY: Noncontributory. PHYSICAL EXAMINATION GENERAL APPEARANCE: Patient is awake, not oriented x3. Patient would just repeat words while being asked certain specific questions and currently has a dirty diaper on exam consistent with history of diarrhea. VITAL SIGNS: Reveals a most recent vital signs of records of blood pressure of 133/70, 76 beats per minute heart rate, 28 per minute respiratory rate from 26 and 19. HEENT: Normocephalic, atraumatic. PERRLA. Extraocular muscles intact. NECK: Soft, supple, with no cervical lymphadenopathy. No JVD. CHEST: Clear to auscultation bilaterally. Good air entry. No wheezes, rales or rhonchi. HEART: S1, S2 within normal limits. Regular rate and rhythm. No murmurs, rubs or gallops. ABDOMEN: Soft, nondistended, nontender. Normoactive bowel sounds x4 quadrants. EXTREMITIES: No cyanosis, clubbing, or edema. PSYCHIATRIC: Could not be appropriately examined given her severe dementia. LABORATORY DATA: Most recent and pertinent laboratory shows CBC with a WBC of 13.0, hemoglobin of 11.9, hematocrit of 38, platelets of 209. VBG shows a pH of 7.21, pCO2 of 57. CMP shows anion gap of 10. Sodium and potassium were found to be normal. GFR of 14.8. Troponin is mildly elevated at 0.04. Urinalysis was still pending at the time of patient's evaluation and admission. ASSESSMENT AND PLAN: The patient is an 83-year-old lady with history of chronic kidney disease, diabetes mellitus type 2, and severe dementia being admitted for hyperosmolar hyperglycemic state. 1. Hyperosmolar hyperglycemic state. We will place the patient on hyperosmolar hyperglycemic state protocol in the ICU and we will continue watchful waiting and will adjust insulin needs as needed. 2. Acute renal failure likely secondary to reported diarrhea and given this is an acute issue and the patient is a poor historian, we will check urinalysis and calculate for FENa as well as we will order a kidney ultrasound to rule out obstructive post-renal causes. 3. Diarrhea. We will check stool wbc as well as C. diff given she is at high risk for it. 4. Lactic acidemia likely cause of acidosis, but likely due to diarrhea causing dehydration and causing acute renal failure. 5. Mildly elevated troponin likely secondary to acute renal failure in the setting of possible demand ischemia. We will continue to trend troponin. 6. Prophylaxis. We will place patient on deep vein thrombosis prophylaxis as ordered. 7. Disposition as above. [id number]/[facility] #: [id number] [facility]
[2018-08-06] MEDS ORDERED: KCL 20 MEQ/100 ML IVPREMIX* 20 MEQ/100 ML BAG IV ONE (22:26)
[2018-08-06] MEDS ORDERED: KCL 20 MEQ/100 ML IVPREMIX* 20 MEQ/100 ML BAG ONE (22:49)
[2018-08-06] MEDS ORDERED: cefTRIAXone(*) 1 GM in NS 0.9% 50 ML* 50 ML IVPB SCH (23:00)
[2018-08-06] MEDS: NS 0.45% KCl 20 Meq 1000 ML* 1,000 ML IV SCH (23:37)
[2018-08-07 00:29] LABS: EGFR Non-African American 16.5 (>60)
[2018-08-07] MEDS ORDERED: Cefepime 2 GM in Dextrose(*) 2 GM/50 ML BAG IV SCH (05:00)
[2018-08-07] MEDS: Cefepime 1 GM in Dextrose(*) 1 GM/50 ML BAG IV SCH (05:47)
[2018-08-07 05:53] LABS: ABS Basophils 0.1 10^3/ul (0-0.2); ABS Eosinophils 0.2 10^3/ul (0-0.6); ABS Monocytes 0.6 10^3/ul (0-0.8); ABS Neutrophils 11.2 10^3/ul (1.5-7.7); ABS Nucleated RBC 0 10^3/ul; Eosinophil % 1.4 % (0-6); Hematocrit 32 % (35-47); Hemoglobin 10.3 g/dl (12.0-16.0); Lymphocyte % 7.8 % (25-47); Mean Corpuscular HGB Conc 33 g/dl (31-36); Mean Corpuscular Hemoglobin 30 pg (27-31); Mean Corpuscular Volume 93 fL (80-97); Mean Platelet Volume 9.5 um3 (7.4-10.4); Nucleated Red Blood Cells % 0; Platelet Count 184 10^3/ul (150-450); Red Blood Count 3.38 10^6/ul (4.00-5.40); Red Cell Distribution Width 18 % (10.5-15); White Blood Count 13.2 10^3/ul (3.5-10.8)
[2018-08-07 06:17] LABS: EGFR Non-African American 17.3 (>60)
[2018-08-07] MEDS: NS 0.45% KCl 20 Meq 1000 ML* 1,000 ML IV SCH (07:03)
[2018-08-07] MEDS ORDERED: Potassium Phosphate IV* 15 MMOLE in NS 0.9% 250 ML* 250 ML IVPB ONE (08:12)
[2018-08-07] MEDS ORDERED: Magnesium Sulfate IV* 3 GM in NS 0.9% 100 ML* 100 ML IVPB ONE (08:13)
[2018-08-07] MEDS: Amiodarone TAB* 200 MG PO SCH (08:20)
[2018-08-07] MEDS: Folic Acid TAB* 1 MG PO SCH (08:23)
[2018-08-07] MEDS: Omeprazole CAP* 20 MG PO SCH (08:23)
[2018-08-07] MEDS: Carvedilol TAB* 6.25 MG PO SCH ×2 (08:23→21:34)
[2018-08-07] MEDS: Aspirin EC TAB* 81 MG TAB.EC PO SCH (08:23)
[2018-08-07] MEDS: amLODIPine TAB* 5 MG PO SCH (08:23)
[2018-08-07 08:35] LABS: EGFR Non-African American 17.9 (>60)
[2018-08-07] MEDS: Insulin LISPRO* 1 UNITS UNIT SUBCUT SCH ×5 (09:55→21:34)
[2018-08-07] MEDS: Zinc Oxide 40% (TOPICAL)* TUBE TOPICAL SCH ×2 (09:56→21:35)
[2018-08-07] MEDS ORDERED: Potassium Phosphate IV* 10 MMOLE in NS 0.9% 250 ML* 250 ML IVPB ONE (10:00)
[2018-08-07 15:30] LABS: EGFR Non-African American 18.7 (>60)
[2018-08-07] MEDS ORDERED: Dextrose 50% Syringe 50 ML* 25 GM/50 ML SYRINGE IV PUSH PRN (16:50)
[2018-08-07] MEDS ORDERED: Lidocaine PATCH 5%* 1 PATCH TRANSDERM SCH (17:00)
[2018-08-07] MEDS: Donepezil TAB* 5 MG PO SCH (17:22)
[2018-08-07] MEDS: Enoxaparin(*) 30 MG/0.3 ML SYR SUBCUT SCH (17:23)
[2018-08-07] MEDS ORDERED: Lidocaine Patch REMOVE* 1 NOTE MISC SCH (21:00)
[2018-08-07] MEDS: Insulin GLARGINE(*) 1 UNITS UNIT SUBCUT SCH (21:34)
[2018-08-08 02:54] LABS: EGFR Non-African American 20.5 (>60)
[2018-08-08] MEDS: Cefepime 1 GM in Dextrose(*) 1 GM/50 ML BAG IV SCH (04:41)
[2018-08-08 05:30] LABS: ABS Basophils 0.1 10^3/ul (0-0.2); ABS Eosinophils 0.2 10^3/ul (0-0.6); ABS Lymphocytes 0.8 10^3/ul (1.0-4.8); ABS Monocytes 0.4 10^3/ul (0-0.8); ABS Neutrophils 9.6 10^3/ul (1.5-7.7); ABS Nucleated RBC 0 10^3/ul; Eosinophil % 2.2 % (0-6); Hematocrit 31 % (35-47); Hemoglobin 10.3 g/dl (12.0-16.0); Lymphocyte % 7.4 % (25-47); Mean Corpuscular HGB Conc 33 g/dl (31-36); Mean Corpuscular Hemoglobin 30 pg (27-31); Mean Corpuscular Volume 92 fL (80-97); Mean Platelet Volume 9.6 um3 (7.4-10.4); Nucleated Red Blood Cells % 0; Platelet Count 183 10^3/ul (150-450); Red Cell Distribution Width 19 % (10.5-15); White Blood Count 11.2 10^3/ul (3.5-10.8)
[2018-08-08] MEDS ORDERED: D5W 1000 ML BAG* 1,000 ML IV SCH (08:00)
[2018-08-08] MEDS: Insulin LISPRO* 1 UNITS UNIT SUBCUT SCH ×4 (08:38→21:54)
[2018-08-08] MEDS: Amiodarone TAB* 200 MG PO SCH (08:39)
[2018-08-08] MEDS: Carvedilol TAB* 6.25 MG PO SCH ×2 (08:39→21:54)
[2018-08-08] MEDS: Zinc Oxide 40% (TOPICAL)* TUBE TOPICAL SCH ×2 (08:39→21:55)
[2018-08-08] MEDS: Folic Acid TAB* 1 MG PO SCH (08:40)
[2018-08-08] MEDS: amLODIPine TAB* 5 MG PO SCH (08:40)
[2018-08-08] MEDS: Omeprazole CAP* 20 MG PO SCH (08:40)
[2018-08-08] MEDS: Aspirin EC TAB* 81 MG TAB.EC PO SCH (08:40)
[2018-08-08] MEDS ORDERED: cefTRIAXone(*) 2 GM in NS 0.9% 50 ML* 100 ML IVPB SCH (10:00)
--- NOTE | 2018-08-08 11:12 | RAD ---
INDICATION: Diarrhea. Severe dementia. COMPARISON: August 06, 2018 renal ultrasound and August 02, 2018 CT. TECHNIQUE: Multidetector CT images were obtained from the lung bases to the ischial tuberosities. No oral contrast administered. Assessment of the visceral limited without IV contrast. Multiplanar reformation. REPORT: VISUALIZED INFERIOR THORAX: Fat and stomach containing diaphragmatic/hiatal hernia results in moderate compressive atelectasis at the RIGHT greater than LEFT lung bases and anterior displacement of the heart. Small dependent pleural effusions are new. LIVER / GALLBLADDER / PANCREAS / SPLEEN: Arms down position limits image quality of the abdominal viscera. No CT abnormality of the liver or gallbladder. Negative for biliary dilatation. Atrophic pancreas without suspicious finding. Unremarkable spleen. ALIMENTARY TRACT: Aside from the hiatal hernia the upper GI is unremarkable. Negative for CT abnormality of the small bowel or appendix. Mild to moderate diverticulosis of the sigmoid colon without findings of acute diverticulitis. Air-fluid levels in the nondistended colon. No colonic mural thickening or perienteric inflammatory change evident. Trace free pelvic fluid. Negative for free air or hernias. MESENTERIC: Unremarkable. ADRENAL / GENITOURINARY: Normal adrenal glands. Unchanged bilateral renal cortical cysts. Negative for hydronephrosis. Unremarkable ureters and urinary bladder. Unremarkable anteverted uterus and adnexal regions. RETROPERITONEAL: Negative for lymphadenopathy. VASCULAR: Atherosclerotic calcification of tortuous normal diameter abdominal aorta and iliac arteries. Physiologic partial distention of the IVC. BONES: Multiple unchanged osteoporotic compression fractures of the visualized thoracic and lumbar spine. No new fractures evident within the [id number]. Degenerative arthropathy at the hips with associated subchondral sclerosis. No suspicious focal osseous lesions evident. SOFT TISSUE: Unremarkable. IMPRESSION: #. Mild to moderate diverticulosis of the sigmoid colon without findings of acute diverticulitis. #. Air-fluid levels in the nondistended colon. Negative for mural thickening or perienteric inflammatory change of the colon. Consider potential mild gastroenteritis. #. Fat and stomach containing diaphragmatic/hiatal hernia results in moderate compressive atelectasis at the RIGHT greater than LEFT lung bases and anterior displacement of the heart. Small dependent pleural effusions are new.
[2018-08-08] MEDS ORDERED: Ciprofloxacin 400MG IVPREMIX(* 400 MG/200 ML BAG IVPB SCH (13:00)
[2018-08-08] MEDS: Ciprofloxacin 400MG IVPREMIX(* 400 MG/200 ML BAG IVPB SCH (13:14)
--- NOTE | 2018-08-08 14:57 | PN ---
Subjective Date of Service: 08/08/18 Interval History: Pt seen and examined. Meds and labs reviewed. Pts diarrhea improving along with lethargy; pt more awake today than yesterday CC: N/A ROS: Unable to perform reliable 14 point ROS due to severe dementia PHYSICAL EXAM: GEN APPEARANCE: Awake, not in acute distress HEENT: NC/AT, PERRLA, moist oral mucosa, (-) throat erythema NECK: Soft, supple, (-) cervical LAD, (-)JVD HEART: S1S2 WNL, RRR, No MRG CHEST: CTA, BL, GAE, No W/R/R ABD: Soft, ND/NT, NABS 4x Q EXT: No C/C/E SKIN: Warm to touch PSYCH: No active psychosis, hallucinations, depression, SI/HI Objective Active Medications: Amiodarone HCl (Cordarone Tab*) 100 mg PO QAM [facility] Last Admin: 08/08/18 08:39 Dose: 100 mg Amlodipine Besylate (Norvasc Tab*) 5 mg PO DAILY [facility] Last Admin: 08/08/18 08:40 Dose: 5 mg Aspirin (Aspirin Ec Tab*) 81 mg PO DAILY [facility] Last Admin: 08/08/18 08:40 Dose: 81 mg Carvedilol (Coreg Tab*) 6.25 mg PO BID [facility] Last Admin: 08/08/18 08:39 Dose: 6.25 mg Dextrose (D50w Syringe 50 Ml*) 12.5 gm IV PUSH .FOR FS < 60 - SS PRN PRN Reason: FS < 60 Donepezil HCl (Aricept Tab*) 10 mg PO QPM [facility] Last Admin: 08/07/18 17:22 Dose: 10 mg Enoxaparin Sodium (Lovenox(*)) 30 mg SUBCUT Q24H [facility] Last Admin: 08/07/18 17:23 Dose: 30 mg Folic Acid (Folvite Tab*) 1 mg PO QAM [facility] Last Admin: 08/08/18 08:40 Dose: 1 mg Dextrose (D5w 1000 Ml Bag*) 1,000 mls @ 100 mls/hr IV PER RATE [facility] Stop: 08/08/18 17:59 Last Admin: 08/08/18 08:37 Dose: 100 mls/hr Ciprofloxacin/Dextrose (Cipro 400 Mg Ivpremix(*)) 400 mg in 200 mls @ 200 mls/ hr IVPB Q24H [facility] Last Admin: 08/08/18 13:14 Dose: 200 mls/hr Insulin Glargine (Lantus(*)) 10 units SUBCUT Q24H [facility] Last Admin: 08/07/18 21:34 Dose: 10 units Insulin Human Lispro (Humalog*) 0 units SUBCUT ACHS [facility]; Protocol Last Admin: 08/08/18 13:04 Dose: 1 unit Omeprazole (Prilosec Cap*) 20 mg PO DAILY [facility] Last Admin: 08/08/18 08:40 Dose: 20 mg Zinc Oxide (Zinc Oxide 40% (Topical)*) 1 applic TOPICAL BID [facility] Last Admin: 08/08/18 08:39 Dose: 1 applic Vital Signs - 8 hr 08/08/18 08/08/18 07:27 08:00 Temperature 97.9 F Pulse Rate 82 Respiratory 28 16 Rate Blood Pressure 142/63 (mmHg) O2 Sat by Pulse 94 Oximetry Oxygen Devices in Use Now: None Result Diagrams: 08/08/18 02:10 08/08/18 12:23 Microbiology and Other Data: Microbiology 08/06/18 20:10 Urine Culture - Final Urine Escherichia Coli 08/06/18 16:32 Aerobic Blood Culture - Preliminary Blood Venous Escherichia Coli Anaerobic Blood Culture - Preliminary Escherichia Coli 08/06/18 16:32 Aerobic Blood Culture - Preliminary Blood Venous Escherichia Coli Anaerobic Blood Culture - Preliminary Escherichia Coli 08/07/18 12:50 Stool Gross Appearance - Final Stool C. difficile DNA Amplification - Final 027 Presumptive NEGATIVE Toxigenic C.diff NEGATIVE 08/06/18 23:30 Stool Gross Appearance - Final Stool C. difficile DNA Amplification - Final Stool Lactoferrin - Final 08/06/18 18:50 Nasal Screen MRSA (PCR) - Final Nasal Mrsa Not Detected Assess/Plan/Problems-Billing Assessment: - Patient Problems (1) Diabetes Current Visit: No Status: Acute Code(s): E11.9 - TYPE 2 DIABETES MELLITUS WITHOUT COMPLICATIONS SNOMED Code(s): 79805204 Comment: -Well-controlled with current regimen -Continue current regimen -Spoke with Dr. Ramos this AM and discussed case; will continue to observe pt if pt will need Insulin in the future given HSS likely induced by gastroenteritis and E. coli UTI with sepsis (2) Hypernatremia Current Visit: Yes Status: Acute Code(s): E87.0 - HYPEROSMOLALITY AND HYPERNATREMIA SNOMED Code(s): 70167971 Comment: -Started pt on D5W given hypovolemic hyponatremia despite pt now being +4L since admission -D/W Dr. Breen who mentioned given her hyperglycemia, her corrected sodium level is about 13 points higher than shown initially -Likely due to diarrhea and HHS -Repeat Sodium level at 11 suggests appropriate correction rate; will repeat Sodium level at 1999, and will s/o to covering team that if still hypernatremic and appropriate, pt will need more free fluids and re-order D5W (3) Sepsis secondary to UTI Current Visit: Yes Status: Acute Code(s): A41.9 - SEPSIS, UNSPECIFIED ORGANISM; N39.0 - URINARY TRACT INFECTION, SITE NOT SPECIFIED SNOMED Code(s): 775385146 Comment: -CT of abd/pelvis obtained which did not show any concerns for abscess by Dr. Ramos as previously discussed -CT, however, shows possible gastroenteritis and given positive lactoferin in stools, will change antibiotic to Cipro until ruled out for bacterial causes of gastroenteritis; most likely viral given leukocytosis improving with Cephalosporin alonewill continue to follow (4) Gastroenteritis Current Visit: Yes Status: Acute Code(s): K52.9 - NONINFECTIVE GASTROENTERITIS AND COLITIS, UNSPECIFIED SNOMED Code(s): 22742483 Comment: -Improved -Likely viral and likely exacerbated by UTI with sepsis as discussed above; however, given (+) lactoferin in stools, changed antibiotic in stools until stool studies are resulted then may switch back to cephalosporins (5) Troponin level elevated Current Visit: Yes Status: Acute Code(s): R74.8 - ABNORMAL LEVELS OF OTHER SERUM ENZYMES SNOMED Code(s): 373499374 Comment: -Likely due to SHELLI in the setting of sepsis (6) DVT prophylaxis Current Visit: No Status: Acute Code(s): UHW3010 - SNOMED Code(s): 528350260 Comment: -Continue Lovenox SQ as ordered Status and Disposition: -For PT eval for D/C planning -Discussed case with Dr. Ramos ([phone])
[2018-08-08] MEDS: Donepezil TAB* 5 MG PO SCH (17:30)
[2018-08-08] MEDS: Enoxaparin(*) 30 MG/0.3 ML SYR SUBCUT SCH (17:30)
--- NOTE | 2018-08-08 17:39 | PN ---
PROGRESS NOTE: DATE OF PROGRESS NOTE: 08/07/18 SUBJECTIVE: The patient was seen and examined; meds and labs reviewed. The patient was taken off th e insulin drip yesterday when her HHS has resolved. CHIEF COMPLAINT: Not applicable. REVIEW OF SYSTEMS: The patient has severe dementia, not able to provide a reliable 14-point review o f systems. PHYSICAL EXAMINATION: Shows the most recent vital signs of record with blood pressure of 119/54, hea rt rate 69 beats per minute, saturating at 92% on room air, 97.4 degrees Fahrenheit. General Appeara nce: The patient was asleep, but arousable, not oriented x3. HEENT: Normocephalic and atraumatic, PERRLA. Extraocular muscles intact. Negative for icterus. Moist oral mucosa. Negative throat eryth carlos. Neck is soft and supple with no cervical lymphadenopathy. No JVD. Heart: S1 and S2, within n ormal limits. Regular, rate and rhythm. No murmurs, rubs, or gallops. Chest clear to auscultation b ilaterally. Good air entry. No wheezes, rales, or rhonchi. Abdomen is soft, nondistended, and nont sage. Normoactive bowel sounds x4 Q. Extremities: No cyanosis, clubbing, or edema. Psychiatric c ould not be assessed given her severe dementia. ASSESSMENT AND PLAN: As follows: 1. Diabetes mellitus, continue current insulin regimen; HHS has resolved. 2. Acute renal failure, likely secondary to prerenal cause with a FENa of 1.28, given the urine lyte s have been collected after she had been fluid resuscitated in the ED and may have some component of subsequent ATN. 3. Diarrhea. The patient is negative for C. diff. 4. UTI with sepsis. The patient was placed on cefepime initially and now growing and speciated as E . coli both in the blood as well as urine. We will await sensitivity data and likely the cause of he r HHS. 5. Lactic acidosis, has resolved secondary to UTI with sepsis as discussed. 6. Mildly elevated troponin, it is likely secondary to both acute renal failure and sepsis as well a s possible demand ischemia. Although, her blood pressure has been relatively stable and has likely h as an effect of her acute renal failure in the setting of sepsis. 7. Prophylaxis. Continue low-dose Lovenox. 8. Disposition. As above. [id number]/[facility] #: [id number]
--- NOTE | 2018-08-08 21:12 | CONS ---
AMENDED REPORT NOW INCLUDES DATE OF CONSULT - ESIGNED BEFORE ADJUSTMENT NEPHROLOGY CONSULTATION: DATE OF CONSULT: 08/08/18 HISTORY OF PRESENT ILLNESS: Ms. Messina is an 83-year-old demented female with a history of diabetes mellitus type 2, which had previously been controlled with Januvia and glipizide. She has known chronic renal disease and she has had a history of urinary tract infection in the past. She has significant dementia and cannot give history. Apparently, she has had a "GI bug" with diarrhea for a few days. I understand that is slowing down at this point. When she was admitted to the hospital, she had significant hyperglycemia with hyperosmolar state. She was noted to develop hypernatremia during therapy. PAST MEDICAL HISTORY: Previous medical history significant for cardiomyopathy. She has a history of atrial fibrillation, hypertension, hyperlipidemia, gastroesophageal reflux disease, essential tremor, osteoporosis. She has had right shoulder replacement. MEDICATIONS: Her medications have included: 1. Amiodarone 100 mg daily. 2. Amlodipine 5 mg daily. 3. Aspirin 81 mg daily. 4. Carvedilol 6.25 mg twice a day. 5. She is now on cefepime for E. coli urinary tract infection. 6. She is also receiving Lovenox. 7. She has had magnesium 3 g. 8. Omeprazole 20 mg daily. 9. She has had some potassium replacement. ALLERGIES: She is allergic to MIDAZOLAM. SOCIAL HISTORY: She lives at [facility]. Does not use alcohol or tobacco. REVIEW OF SYSTEMS: She is obviously unable to give me a review of systems. PHYSICAL EXAM: Her blood pressure is 142/63. She has a pulse of 73, which appears quite regular. The mucous membranes are moist. She is anicteric. Her extraocular muscles are intact. Chest is clear. The heart revealed a regular rhythm. I did not hear any murmurs. The abdomen is soft. She had no wincing on palpation. Bowel sounds are positive. Bones, Joints, Extremities: Revealed no cyanosis, clubbing, or edema. DIAGNOSTIC STUDIES/LABORATORY DATA: Review of her laboratory studies reveals a white count of 11.2, hemoglobin of 10.3, platelet count of 183,000. Sodium of 154 up from 140 on presentation, potassium 3.7, chloride 127, total CO2 of 18, this is actually down from 20 on presentation. Her urinalysis is 1+ positive for rbc's, 2+ for blood, 2+ for protein. She has some epithelial cells in her urine. Her urinary sodium is 45 with urine creatinine of 63, not suggestive of a significant prerenal state. Her blood cultures are positive for E. Coli. Her urine cultures are positive for E. Coli. IMPRESSION: 1. Hypernatremia. 2. Previous hyperosmolar state. 3. Diabetes mellitus type 2. 4. Hypertension. 5. Dementia. PLAN: When compensating for the hyperosmolar state relative to the serum sodium level, she really was actually hypernatremic on presentation and the treatment of her blood sugar actually just unmasked what was a hyperosmolar state. She probably had significant free water loss on the combined basis of diarrhea and free water loss because of glycosuria as well. At the present time , she is receiving D5W for her placement. I think that is appropriate. Her sodium should be brought down no faster and then a total of 2 milliosmoles per hour. Clearly, in her condition, she is going to be a person who is going to be prone to episodes of free water loss if she gets hyperglycemic again and if she has episodes of diarrhea again. She probably should be offered water on a regular basis when she is discharged from the hospital. At the present time, I agree with her present management. [id number]/[facility] #: [id number] KRISTY
[2018-08-08] MEDS: Insulin GLARGINE(*) 1 UNITS UNIT SUBCUT SCH (21:54)
[2018-08-09] MEDS: D5W 1000 ML BAG* 1,000 ML IV SCH ×2 (04:31→14:48)
[2018-08-09 07:26] LABS: Hematocrit 29 % (35-47); Hemoglobin 9.8 g/dl (12.0-16.0); Mean Corpuscular HGB Conc 34 g/dl (31-36); Mean Corpuscular Hemoglobin 31 pg (27-31); Mean Corpuscular Volume 91 fL (80-97); Mean Platelet Volume 9.3 um3 (7.4-10.4); Platelet Count 175 10^3/ul (150-450); Red Blood Count 3.19 10^6/ul (4.00-5.40); Red Cell Distribution Width 18 % (10.5-15); White Blood Count 5.3 10^3/ul (3.5-10.8)
[2018-08-09 07:59] LABS: EGFR Non-African American 23.7 (>60)
[2018-08-09] MEDS: Amiodarone TAB* 200 MG PO SCH (08:09)
[2018-08-09] MEDS: Insulin LISPRO* 1 UNITS UNIT SUBCUT SCH ×4 (08:09→21:17)
[2018-08-09] MEDS: Omeprazole CAP* 20 MG PO SCH (08:10)
[2018-08-09] MEDS: Aspirin EC TAB* 81 MG TAB.EC PO SCH (08:10)
[2018-08-09] MEDS: Folic Acid TAB* 1 MG PO SCH (08:10)
[2018-08-09] MEDS: Carvedilol TAB* 6.25 MG PO SCH ×2 (08:10→20:40)
[2018-08-09] MEDS: Zinc Oxide 40% (TOPICAL)* TUBE TOPICAL SCH ×2 (08:10→20:40)
[2018-08-09] MEDS: amLODIPine TAB* 5 MG PO SCH (08:10)
[2018-08-09] MEDS ORDERED: Insulin GLARGINE(*) 1 UNITS UNIT SUBCUT SCH (08:18)
[2018-08-09] MEDS ORDERED: Potassium Chlor TAB* 20 MEQ TAB.ER PO STA (08:20)
--- NOTE | 2018-08-09 12:06 | PN ---
Subjective Date of Service: 08/09/18 Interval History: Pt seen and examined. Meds and labs reviewed. CC: N/A ROS: Unable to perform reliable 14 point ROS due to severe dementia PHYSICAL EXAM: GEN APPEARANCE: Awake, not in acute distress HEENT: NC/AT, PERRLA, moist oral mucosa, (-) throat erythema NECK: Soft, supple, (-) cervical LAD, (-)JVD HEART: S1S2 WNL, RRR, No MRG CHEST: CTA, BL, GAE, No W/R/R ABD: Soft, ND/NT, NABS 4x Q EXT: No C/C/E SKIN: Warm to touch PSYCH: Could not be assessed given severe dementia Objective Active Medications: Amiodarone HCl (Cordarone Tab*) 100 mg PO QAM [facility] Last Admin: 08/09/18 08:09 Dose: 100 mg Amlodipine Besylate (Norvasc Tab*) 5 mg PO DAILY [facility] Last Admin: 08/09/18 08:10 Dose: 5 mg Aspirin (Aspirin Ec Tab*) 81 mg PO DAILY [facility] Last Admin: 08/09/18 08:10 Dose: 81 mg Carvedilol (Coreg Tab*) 6.25 mg PO BID [facility] Last Admin: 08/09/18 08:10 Dose: 6.25 mg Dextrose (D50w Syringe 50 Ml*) 12.5 gm IV PUSH .FOR FS < 60 - SS PRN PRN Reason: FS < 60 Donepezil HCl (Aricept Tab*) 10 mg PO QPM [facility] Last Admin: 08/08/18 17:30 Dose: 10 mg Enoxaparin Sodium (Lovenox(*)) 30 mg SUBCUT Q24H [facility] Last Admin: 08/08/18 17:30 Dose: 30 mg Folic Acid (Folvite Tab*) 1 mg PO QAM [facility] Last Admin: 08/09/18 08:10 Dose: 1 mg Ciprofloxacin/Dextrose (Cipro 400 Mg Ivpremix(*)) 400 mg in 200 mls @ 200 mls/ hr IVPB Q24H [facility] Last Admin: 08/08/18 13:14 Dose: 200 mls/hr Dextrose (D5w 1000 Ml Bag*) 1,000 mls @ 100 mls/hr IV PER RATE [facility] Stop: 08/10/18 12:59 Last Admin: 08/09/18 04:31 Dose: 100 mls/hr Insulin Glargine (Lantus(*)) 12 units SUBCUT Q24H [facility] Last Admin: 08/09/18 08:39 Dose: 12 units Insulin Human Lispro (Humalog*) 0 units SUBCUT ACHS [facility]; Protocol Last Admin: 08/09/18 11:58 Dose: 3 unit Omeprazole (Prilosec Cap*) 20 mg PO DAILY [facility] Last Admin: 08/09/18 08:10 Dose: 20 mg Zinc Oxide (Zinc Oxide 40% (Topical)*) 1 applic TOPICAL BID [facility] Last Admin: 08/09/18 08:10 Dose: 1 applic Vital Signs - 8 hr 08/09/18 08/09/18 08/09/18 07:23 08:18 11:27 Temperature 98.6 F 97.7 F Pulse Rate 72 66 Respiratory 19 16 16 Rate Blood Pressure 140/60 141/55 (mmHg) O2 Sat by Pulse 100 96 Oximetry Oxygen Devices in Use Now: None Result Diagrams: 08/09/18 07:09 08/09/18 07:09 Microbiology and Other Data: Microbiology 08/06/18 20:10 Urine Culture - Final Urine Escherichia Coli 08/06/18 16:32 Aerobic Blood Culture - Preliminary Blood Venous Escherichia Coli Anaerobic Blood Culture - Preliminary Escherichia Coli 08/06/18 16:32 Aerobic Blood Culture - Preliminary Blood Venous Escherichia Coli Anaerobic Blood Culture - Preliminary Escherichia Coli 08/07/18 12:50 Stool Gross Appearance - Final Stool C. difficile DNA Amplification - Final 027 Presumptive NEGATIVE Toxigenic C.diff NEGATIVE 08/06/18 23:30 Stool Gross Appearance - Final Stool C. difficile DNA Amplification - Final Stool Lactoferrin - Final 08/06/18 18:50 Nasal Screen MRSA (PCR) - Final Nasal Mrsa Not Detected Assess/Plan/Problems-Billing Assessment: - Patient Problems (1) Hypernatremia Current Visit: Yes Status: Acute Code(s): E87.0 - HYPEROSMOLALITY AND HYPERNATREMIA SNOMED Code(s): 97669017 Comment: -Continue D5W given hypovolemic hyponatremia with free fluid loss due to diarrhea and decreased PO intake complicated by dementia -D/W Dr. Breen who mentioned given her hyperglycemia, her corrected sodium level is about 13 points higher than shown initially -Likely due to diarrhea and HHS -Repeat Sodium level at 1600 (2) Diabetes Current Visit: No Status: Acute Code(s): E11.9 - TYPE 2 DIABETES MELLITUS WITHOUT COMPLICATIONS SNOMED Code(s): 65479272 Comment: -Uncontrolled given D5W needed to correct hypernatremia due to free water loss -Adjusted Insulin regimen -Continue current regimen -Spoke with Dr. Ramos and discussed case; will continue to observe pt if pt will need Insulin in the future given HSS likely induced by gastroenteritis and E. coli UTI with sepsis (3) Sepsis secondary to UTI Current Visit: Yes Status: Acute Code(s): A41.9 - SEPSIS, UNSPECIFIED ORGANISM; N39.0 - URINARY TRACT INFECTION, SITE NOT SPECIFIED SNOMED Code(s): 958252864 Comment: -CT of abd/pelvis obtained which did not show any concerns for abscess by Dr. Ramos as previously discussed -CT, however, shows possible gastroenteritis and given positive lactoferin in stools, will change antibiotic to Cipro until ruled out for bacterial causes of gastroenteritis; most likely viral given leukocytosis improving with Cephalosporin alonewill continue to follow (4) Gastroenteritis Current Visit: Yes Status: Acute Code(s): K52.9 - NONINFECTIVE GASTROENTERITIS AND COLITIS, UNSPECIFIED SNOMED Code(s): 69916207 Comment: -Improved -Likely viral and likely exacerbated by UTI with sepsis as discussed above; however, given (+) lactoferin in stools, changed antibiotic in stools until stool studies are resulted then may switch back to cephalosporins (5) Troponin level elevated Current Visit: Yes Status: Acute Code(s): R74.8 - ABNORMAL LEVELS OF OTHER SERUM ENZYMES SNOMED Code(s): 284996443 Comment: -Likely due to SHELLI in the setting of sepsis (6) DVT prophylaxis Current Visit: No Status: Acute Code(s): [id number] - SNOMED Code(s): 322089275 Comment: -Continue Lovenox SQ as ordered Status and Disposition: -For PT eval for D/C planning -Discussed case with Dr. Ramos ([phone])
[2018-08-09] MEDS: Ciprofloxacin 400MG IVPREMIX(* 400 MG/200 ML BAG IVPB SCH (12:08)
[2018-08-09] MEDS: Donepezil TAB* 5 MG PO SCH (16:56)
[2018-08-09] MEDS: Enoxaparin(*) 30 MG/0.3 ML SYR SUBCUT SCH (16:57)
[2018-08-09] MEDS ORDERED: Potassium Chlor TAB* 20 MEQ TAB.ER PO ONE (22:41)
[2018-08-10 06:53] LABS: ABS Basophils 0 10^3/ul (0-0.2); ABS Eosinophils 0.2 10^3/ul (0-0.6); ABS Lymphocytes 1.2 10^3/ul (1.0-4.8); ABS Monocytes 0.2 10^3/ul (0-0.8); ABS Neutrophils 2.5 10^3/ul (1.5-7.7); ABS Nucleated RBC 0 10^3/ul; Eosinophil % 3.9 % (0-6); Hematocrit 30 % (35-47); Hemoglobin 10.1 g/dl (12.0-16.0); Lymphocyte % 30.1 % (25-47); Mean Corpuscular HGB Conc 34 g/dl (31-36); Mean Corpuscular Hemoglobin 31 pg (27-31); Mean Corpuscular Volume 92 fL (80-97); Mean Platelet Volume 9.2 um3 (7.4-10.4); Nucleated Red Blood Cells % 0.2; Platelet Count 160 10^3/ul (150-450); Red Blood Count 3.27 10^6/ul (4.00-5.40); Red Cell Distribution Width 19 % (10.5-15); White Blood Count 4.1 10^3/ul (3.5-10.8)
[2018-08-10 07:11] LABS: EGFR Non-African American 27.9 (>60)
[2018-08-10] MEDS ORDERED: Dextrose 50% Syringe 50 ML* 25 GM/50 ML SYRINGE IV PUSH PRN (07:47)
[2018-08-10] MEDS ORDERED: Potassium Phosphate IV* 10 MMOLE in NS 0.9% 250 ML* 250 ML IVPB ONE (07:55)
[2018-08-10] MEDS ORDERED: D5W 1000 ML BAG* 1,000 ML IV SCH ×2 (08:00→13:00)
[2018-08-10] MEDS: Insulin GLARGINE(*) 1 UNITS UNIT SUBCUT SCH (08:50)
[2018-08-10] MEDS: Insulin LISPRO* 1 UNITS UNIT SUBCUT SCH ×6 (08:51→21:34)
[2018-08-10] MEDS: Amiodarone TAB* 200 MG PO SCH (08:54)
[2018-08-10] MEDS: Aspirin EC TAB* 81 MG TAB.EC PO SCH (08:54)
[2018-08-10] MEDS: Carvedilol TAB* 6.25 MG PO SCH ×2 (08:55→21:48)
[2018-08-10] MEDS: amLODIPine TAB* 5 MG PO SCH (08:55)
[2018-08-10] MEDS: Folic Acid TAB* 1 MG PO SCH (08:56)
[2018-08-10] MEDS: Omeprazole CAP* 20 MG PO SCH (08:56)
[2018-08-10] MEDS: Zinc Oxide 40% (TOPICAL)* TUBE TOPICAL SCH ×2 (09:28→21:50)
--- NOTE | 2018-08-10 10:05 | PN ---
Subjective Date of Service: 08/10/18 Interval History: Pt seen and examined. Meds and labs reviewed. CC: N/A ROS: Unable to perform reliable 14 point ROS due to severe dementia PHYSICAL EXAM: GEN APPEARANCE: Awake, not in acute distress HEENT: NC/AT, PERRLA, moist oral mucosa, (-) throat erythema NECK: Soft, supple, (-) cervical LAD, (-)JVD HEART: S1S2 WNL, RRR, No MRG CHEST: CTA, BL, GAE, No W/R/R ABD: Soft, ND/NT, NABS 4x Q EXT: No C/C/E SKIN: Warm to touch PSYCH: Could not be assessed given severe dementia Objective Active Medications: Amiodarone HCl (Cordarone Tab*) 100 mg PO QAM [facility] Last Admin: 08/10/18 08:54 Dose: 100 mg Amlodipine Besylate (Norvasc Tab*) 5 mg PO DAILY [facility] Last Admin: 08/10/18 08:55 Dose: 5 mg Aspirin (Aspirin Ec Tab*) 81 mg PO DAILY [facility] Last Admin: 08/10/18 08:54 Dose: 81 mg Carvedilol (Coreg Tab*) 6.25 mg PO BID [facility] Last Admin: 08/10/18 08:55 Dose: 6.25 mg Dextrose (D50w Syringe 50 Ml*) 12.5 gm IV PUSH .FOR FS < 60 - SS PRN PRN Reason: FS < 60 Donepezil HCl (Aricept Tab*) 10 mg PO QPM [facility] Last Admin: 08/09/18 16:56 Dose: 10 mg Enoxaparin Sodium (Lovenox(*)) 30 mg SUBCUT Q24H [facility] Last Admin: 08/09/18 16:57 Dose: 30 mg Folic Acid (Folvite Tab*) 1 mg PO QAM [facility] Last Admin: 08/10/18 08:56 Dose: 1 mg Ciprofloxacin/Dextrose (Cipro 400 Mg Ivpremix(*)) 400 mg in 200 mls @ 200 mls/ hr IVPB Q24H [facility] Last Admin: 08/09/18 12:08 Dose: 200 mls/hr Dextrose (D5w 1000 Ml Bag*) 1,000 mls @ 100 mls/hr IV PER RATE [facility] Stop: 08/10/18 12:59 Last Admin: 08/09/18 14:48 Dose: 100 mls/hr Dextrose (D5w 1000 Ml Bag*) 1,000 mls @ 85 mls/hr IV PER RATE [facility] Stop: 08/12/18 00:46 Potassium Phosphate 10 mmole/ (Sodium Chloride) 253.3333 mls @ 42 mls/hr IVPB ONCE ONE Stop: 08/10/18 13:56 Last Admin: 08/10/18 09:21 Dose: 42 mls/hr Insulin Glargine (Lantus(*)) 14 units SUBCUT Q24H [facility] Last Admin: 08/10/18 08:50 Dose: 14 unit Insulin Human Lispro (Humalog*) 0 units SUBCUT ACHS [facility]; Protocol Last Admin: 08/10/18 08:51 Dose: 2 unit Insulin Human Lispro (Humalog*) 6 units SUBCUT AC [facility] Omeprazole (Prilosec Cap*) 20 mg PO DAILY [facility] Last Admin: 08/10/18 08:56 Dose: 20 mg Zinc Oxide (Zinc Oxide 40% (Topical)*) 1 applic TOPICAL BID [facility] Last Admin: 08/10/18 09:28 Dose: 1 applic Vital Signs - 8 hr 08/10/18 08/10/18 03:11 07:23 Temperature 98.2 F 98.0 F Pulse Rate 84 77 Respiratory 22 19 Rate Blood Pressure 142/65 150/62 (mmHg) O2 Sat by Pulse 96 94 Oximetry Oxygen Devices in Use Now: None Result Diagrams: 08/10/18 06:35 08/10/18 06:35 Microbiology and Other Data: Microbiology 08/06/18 20:10 Urine Culture - Final Urine Escherichia Coli 08/06/18 16:32 Aerobic Blood Culture - Preliminary Blood Venous Escherichia Coli Anaerobic Blood Culture - Preliminary Escherichia Coli 08/06/18 16:32 Aerobic Blood Culture - Preliminary Blood Venous Escherichia Coli Anaerobic Blood Culture - Preliminary Escherichia Coli 08/07/18 12:50 Stool Gross Appearance - Final Stool C. difficile DNA Amplification - Final 027 Presumptive NEGATIVE Toxigenic C.diff NEGATIVE 08/06/18 23:30 Stool Gross Appearance - Final Stool C. difficile DNA Amplification - Final Stool Lactoferrin - Final 08/06/18 18:50 Nasal Screen MRSA (PCR) - Final Nasal Mrsa Not Detected Assess/Plan/Problems-Billing Assessment: - Patient Problems (1) Hypernatremia Current Visit: Yes Status: Acute Code(s): E87.0 - HYPEROSMOLALITY AND HYPERNATREMIA SNOMED Code(s): 14879566 Comment: -Continue D5W given hypovolemic hyponatremia with free fluid loss due to diarrhea and decreased PO intake complicated by dementia -D/W Dr. Breen who mentioned given her hyperglycemia, her corrected sodium level is about 13 points higher than shown initially -Likely due to diarrhea and HHS (2) Diabetes Current Visit: No Status: Acute Code(s): E11.9 - TYPE 2 DIABETES MELLITUS WITHOUT COMPLICATIONS SNOMED Code(s): 18264737 Comment: -Uncontrolled given D5W needed to correct hypernatremia due to free water loss -Adjusted Insulin regimen -Continue current regimen -Spoke with Dr. Ramos and discussed case; will continue to observe pt if pt will need Insulin in the future given HSS likely induced by gastroenteritis and E. coli UTI with sepsis -Will check HBa1c to better determine if insulin will need to be prescribed when D5W is D/Cd on pts D/C (3) Sepsis secondary to UTI Current Visit: Yes Status: Acute Code(s): A41.9 - SEPSIS, UNSPECIFIED ORGANISM; N39.0 - URINARY TRACT INFECTION, SITE NOT SPECIFIED SNOMED Code(s): 388976756 Comment: -CT of abd/pelvis obtained which did not show any concerns for abscess by Dr. Ramos as previously discussed -CT, however, shows possible gastroenteritis and given positive lactoferin in stools, will change antibiotic to Cipro until ruled out for bacterial causes of gastroenteritis; most likely viral given leukocytosis improving with Cephalosporin alonewill continue to follow (4) Gastroenteritis Current Visit: Yes Status: Acute Code(s): K52.9 - NONINFECTIVE GASTROENTERITIS AND COLITIS, UNSPECIFIED SNOMED Code(s): 29661491 Comment: -Improved -Likely viral and likely exacerbated by UTI with sepsis as discussed above; however, given (+) lactoferin in stools, changed antibiotic in stools until stool studies are resulted then may switch back to cephalosporins (5) Troponin level elevated Current Visit: Yes Status: Acute Code(s): R74.8 - ABNORMAL LEVELS OF OTHER SERUM ENZYMES SNOMED Code(s): 610219298 Comment: -Likely due to SHELLI in the setting of sepsis (6) DVT prophylaxis Current Visit: No Status: Acute Code(s): KED7783 - SNOMED Code(s): 065785560 Comment: -Pt uncooperative with PT due to severe dementia and attempts at PT eval were unsuccessful -Will touch base with daughter since pt unlikely to do well if D/C'd back to assisted living given severe dementia that further decreases PO intake -For possible D/C in 1-2 days when off of D5W to reassess need for insulin -Discussed case with Dr. Ramos ([phone]) Status and Disposition: -For PT eval for D/C planning -Discussed case with Dr. Ramos ([phone])
[2018-08-10] MEDS: Ciprofloxacin 400MG IVPREMIX(* 400 MG/200 ML BAG IVPB SCH (16:20)
[2018-08-10] MEDS: Donepezil TAB* 5 MG PO SCH (18:03)
[2018-08-10] MEDS: Enoxaparin(*) 30 MG/0.3 ML SYR SUBCUT SCH (18:04)
[2018-08-11 07:47] LABS: EGFR Non-African American 28.3 (>60)
[2018-08-11] MEDS: Amiodarone TAB* 200 MG PO SCH (08:30)
[2018-08-11] MEDS: Aspirin EC TAB* 81 MG TAB.EC PO SCH (08:31)
[2018-08-11] MEDS: Carvedilol TAB* 6.25 MG PO SCH ×2 (08:31→20:17)
[2018-08-11] MEDS: Omeprazole CAP* 20 MG PO SCH (08:31)
[2018-08-11] MEDS: amLODIPine TAB* 5 MG PO SCH (08:32)
[2018-08-11] MEDS: Insulin LISPRO* 1 UNITS UNIT SUBCUT SCH ×7 (08:33→20:18)
[2018-08-11] MEDS: Folic Acid TAB* 1 MG PO SCH (08:33)
[2018-08-11] MEDS: Insulin GLARGINE(*) 1 UNITS UNIT SUBCUT SCH (08:34)
[2018-08-11] MEDS: Zinc Oxide 40% (TOPICAL)* TUBE TOPICAL SCH ×2 (08:40→20:18)
[2018-08-11] MEDS: D5W 1000 ML BAG* 1,000 ML IV SCH ×2 (10:07→19:26)
[2018-08-11] MEDS: Ciprofloxacin 400MG IVPREMIX(* 400 MG/200 ML BAG IVPB SCH (12:31)
[2018-08-11] MEDS ORDERED: Insulin GLARGINE(*) 1 UNITS UNIT SUBCUT SCH (15:29)
--- NOTE | 2018-08-11 15:39 | PN ---
Subjective Date of Service: 08/11/18 Interval History: Pt seen and examined. Meds and labs reviewed. CC: N/A ROS: Unable to perform reliable 14 point ROS due to severe dementia PHYSICAL EXAM: GEN APPEARANCE: Awake, not in acute distress HEENT: NC/AT, PERRLA, moist oral mucosa, (-) throat erythema NECK: Soft, supple, (-) cervical LAD, (-)JVD HEART: S1S2 WNL, RRR, No MRG CHEST: CTA, BL, GAE, No W/R/R ABD: Soft, ND/NT, NABS 4x Q EXT: No C/C/E SKIN: Warm to touch PSYCH: Could not be assessed given severe dementia Objective Active Medications: Amiodarone HCl (Cordarone Tab*) 100 mg PO QAM [facility] Last Admin: 08/11/18 08:30 Dose: 100 mg Amlodipine Besylate (Norvasc Tab*) 5 mg PO DAILY [facility] Last Admin: 08/11/18 08:32 Dose: 5 mg Aspirin (Aspirin Ec Tab*) 81 mg PO DAILY [facility] Last Admin: 08/11/18 08:31 Dose: 81 mg Carvedilol (Coreg Tab*) 6.25 mg PO BID [facility] Last Admin: 08/11/18 08:31 Dose: 6.25 mg Ciprofloxacin (Cipro Tab*) 250 mg PO Q12HR [facility] Stop: 08/17/18 20:59 Dextrose (D50w Syringe 50 Ml*) 12.5 gm IV PUSH .FOR FS < 60 - SS PRN PRN Reason: FS < 60 Donepezil HCl (Aricept Tab*) 10 mg PO QPM [facility] Last Admin: 08/10/18 18:03 Dose: 10 mg Enoxaparin Sodium (Lovenox(*)) 30 mg SUBCUT Q24H [facility] Last Admin: 08/10/18 18:04 Dose: 30 mg Folic Acid (Folvite Tab*) 1 mg PO QAM [facility] Last Admin: 08/11/18 08:33 Dose: 1 mg Dextrose (D5w 1000 Ml Bag*) 1,000 mls @ 125 mls/hr IV PER RATE [facility] Stop: 08/12/18 17:17 Last Admin: 08/11/18 10:07 Dose: 125 mls/hr Insulin Glargine (Lantus(*)) 16 units SUBCUT Q24H [facility] Insulin Human Lispro (Humalog*) 0 units SUBCUT ACHS [facility]; Protocol Last Admin: 08/11/18 12:31 Dose: 4 unit Insulin Human Lispro (Humalog*) 8 units SUBCUT AC [facility] Omeprazole (Prilosec Cap*) 20 mg PO DAILY [facility] Last Admin: 08/11/18 08:31 Dose: 20 mg Zinc Oxide (Zinc Oxide 40% (Topical)*) 1 applic TOPICAL BID [facility] Last Admin: 08/11/18 08:40 Dose: 1 applic Vital Signs - 8 hr 08/11/18 11:16 Temperature 98.3 F Pulse Rate 78 Respiratory 23 Rate Blood Pressure 127/51 (mmHg) O2 Sat by Pulse 96 Oximetry Oxygen Devices in Use Now: None Result Diagrams: 08/10/18 06:35 08/11/18 07:05 Microbiology and Other Data: Microbiology 08/06/18 20:10 Urine Culture - Final Urine Escherichia Coli 08/06/18 16:32 Aerobic Blood Culture - Preliminary Blood Venous Escherichia Coli Anaerobic Blood Culture - Preliminary Escherichia Coli 08/06/18 16:32 Aerobic Blood Culture - Preliminary Blood Venous Escherichia Coli Anaerobic Blood Culture - Preliminary Escherichia Coli 08/07/18 12:50 Stool Gross Appearance - Final Stool C. difficile DNA Amplification - Final 027 Presumptive NEGATIVE Toxigenic C.diff NEGATIVE 08/06/18 23:30 Stool Gross Appearance - Final Stool C. difficile DNA Amplification - Final Stool Lactoferrin - Final 08/06/18 18:50 Nasal Screen MRSA (PCR) - Final Nasal Mrsa Not Detected Assess/Plan/Problems-Billing Assessment: - Patient Problems (1) Hypernatremia Current Visit: Yes Status: Acute Code(s): E87.0 - HYPEROSMOLALITY AND HYPERNATREMIA SNOMED Code(s): 66501950 Comment: -Will increase rate of D5W given hypovolemic hyponatremia thought to be due to free fluid loss due to diarrhea and decreased PO intake complicated by dementia ; slight worsening with decrease of rate from yesterday -Re-check Sodium levels at 1999 to make sure it doesnt exceed rate of correction of 8 mEq/day -D/W Dr. Breen who mentioned given her hyperglycemia, her corrected sodium level is about 13 points higher than shown initially -Likely due to diarrhea and HHS (2) Diabetes Current Visit: No Status: Acute Code(s): E11.9 - TYPE 2 DIABETES MELLITUS WITHOUT COMPLICATIONS SNOMED Code(s): 65852463 Comment: -Uncontrolled given D5W needed to correct hypernatremia due to free water loss -Adjusted Insulin regimen -Continue current regimen -Spoke with Dr. Ramos and discussed case; will continue to observe pt if pt will need Insulin in the future given HSS likely induced by gastroenteritis and E. coli UTI with sepsis -HBa1c = 8.2 (08/10/18) (3) Sepsis secondary to UTI Current Visit: Yes Status: Acute Code(s): A41.9 - SEPSIS, UNSPECIFIED ORGANISM; N39.0 - URINARY TRACT INFECTION, SITE NOT SPECIFIED SNOMED Code(s): 189078525 Comment: -Changed IV Cipro to PO -CT of abd/pelvis obtained which did not show any concerns for abscess by Dr. Ramos as previously discussed -CT, however, shows possible gastroenteritis and given positive lactoferin in stools, will change antibiotic to Cipro until ruled out for bacterial causes of gastroenteritis; most likely viral given leukocytosis improving with Cephalosporin alonewill continue to follow (4) Gastroenteritis Current Visit: Yes Status: Acute Code(s): K52.9 - NONINFECTIVE GASTROENTERITIS AND COLITIS, UNSPECIFIED SNOMED Code(s): 01568029 Comment: -Improved -As above; stool studies negative for enteroinvasive bacteria -Likely viral and likely exacerbated by UTI with sepsis as discussed above; however, given (+) lactoferin in stools, changed antibiotic in stools until stool studies are resulted then may switch back to cephalosporins (5) Troponin level elevated Current Visit: Yes Status: Acute Code(s): R74.8 - ABNORMAL LEVELS OF OTHER SERUM ENZYMES SNOMED Code(s): 505599026 Comment: -Likely due to SHELLI in the setting of sepsis (6) DVT prophylaxis Current Visit: No Status: Acute Code(s): [id number] - SNOMED Code(s): 226128608 Comment: -Continue Lovenox SQ Status and Disposition: -Discussed case with Dr. Ramos ([phone]) -Discussed case with daughter yesterday that there is possibility that pt may require placement given pt is not yet at baseline and unable to ambulate -Pt to re-evaluate subsequent needs -For possible D/C in 1-2 days when off of D5W to reassess need for insulin
[2018-08-11] MEDS: Donepezil TAB* 5 MG PO SCH (18:00)
[2018-08-11] MEDS: Enoxaparin(*) 30 MG/0.3 ML SYR SUBCUT SCH (18:00)
[2018-08-11] MEDS ORDERED: Ciprofloxacin TAB* 250 MG PO SCH (21:00)
--- NOTE | 2018-08-11 23:30 | PN ---
Progress Note - Progress Note Date of Service: 08/11/18 Note: Nursing called reporting patient found lethargic. Upon arrival, she awoke to voice, but did not answer questions, returned quickly to sleep. She felt warm to touch and temperature was found to be 102F. She is admitted for sepsis 2nd E coli UTI w/ bacteremia & has been on ciprofloxacin IV since the for which sensitivity seems adequate, but is not responding. As such will repeat blood CX and change ABX to cefepime.
[2018-08-11] MEDS ORDERED: Acetaminophen TAB* 325 MG PO PRN (23:35)
[2018-08-11] MEDS: Acetaminophen SUPP* 650 MG SUPP PR PRN (23:57)
[2018-08-12] MEDS ORDERED: Cefepime(*) 1 GM in NS 0.9% 50 ML* 50 ML IVPB SCH (05:00)
[2018-08-12] MEDS: NS 0.9% IVPB SCH (05:43)
[2018-08-12] MEDS: CEFEPIME ADVAN IVPB SCH (05:43)
[2018-08-12] MEDS ORDERED: Cefepime* 2 GM in Dextrose 50mL Q24H (Duplex) IV SCH (06:00)
[2018-08-12 06:40] LABS: ABS Basophils 0 10^3/ul (0-0.2); ABS Neutrophils 5.6 10^3/ul (1.5-7.7); Hematocrit 27 % (35-47); Hemoglobin 8.9 g/dl (12.0-16.0); Mean Corpuscular HGB Conc 33 g/dl (31-36); Mean Corpuscular Hemoglobin 31 pg (27-31); Mean Corpuscular Volume 94 fL (80-97); Mean Platelet Volume 9.4 um3 (7.4-10.4); Monocytes % 0 % (0-7); Platelet Count 89 10^3/ul (150-450); Red Blood Count 2.84 10^6/ul (4.00-5.40); Red Cell Distribution Width 18 % (10.5-15); White Blood Count 7.5 10^3/ul (3.5-10.8)
[2018-08-12] MEDS: Insulin LISPRO* 1 UNITS UNIT SUBCUT SCH ×7 (08:26→23:26)
--- NOTE | 2018-08-12 08:32 | RAD ---
Indication: Fever and confusion. Single frontal view of the chest performed at 0813 hours was reviewed. Comparison is made with previous exam dated August 06, 2018. No mediastinal shift is noted. Cardiomegaly is noted. Interstitial edema consistent with vascular congestion is noted. There are likely small bilateral pleural effusions noted. Right shoulder replacement is noted. IMPRESSION: CARDIOMEGALY WITH MILD VASCULAR CONGESTION AND RIGHT SHOULDER REPLACEMENT SIMILAR TO THAT SEEN ON 2017.
[2018-08-12 09:04] LABS: Hematocrit 27 % (35-47); Hemoglobin 8.8 g/dl (12.0-16.0); Mean Corpuscular HGB Conc 33 g/dl (31-36); Mean Corpuscular Hemoglobin 31 pg (27-31); Mean Corpuscular Volume 95 fL (80-97); Red Blood Count 2.82 10^6/ul (4.00-5.40); Red Cell Distribution Width 18 % (10.5-15); White Blood Count 11.8 10^3/ul (3.5-10.8)
[2018-08-12 09:37] LABS: Platelet Count 105 10^3/ul (150-450)
[2018-08-12] MEDS: Aspirin EC TAB* 81 MG TAB.EC PO SCH (10:04)
[2018-08-12] MEDS: Folic Acid TAB* 1 MG PO SCH (10:04)
[2018-08-12] MEDS: amLODIPine TAB* 5 MG PO SCH (10:04)
[2018-08-12] MEDS: Insulin GLARGINE(*) 1 UNITS UNIT SUBCUT SCH (10:04)
[2018-08-12] MEDS: Carvedilol TAB* 6.25 MG PO SCH ×2 (10:04→23:26)
[2018-08-12] MEDS: Amiodarone TAB* 200 MG PO SCH (10:04)
[2018-08-12] MEDS: Omeprazole CAP* 20 MG PO SCH (10:04)
[2018-08-12] MEDS: Zinc Oxide 40% (TOPICAL)* TUBE TOPICAL SCH ×2 (10:05→23:27)
--- NOTE | 2018-08-12 11:54 | PN ---
Subjective Date of Service: 08/12/18 Interval History: Pt seen and examined. Meds and labs reviewed. Pt had fever last night and was reported to have MS changes. CC: N/A ROS: Unable to perform reliable 14 point ROS due to severe dementia PHYSICAL EXAM: GEN APPEARANCE: Asleep and arousable, not in acute distress HEENT: NC/AT, PERRLA, moist oral mucosa, (-) throat erythema NECK: Soft, supple, (-) cervical LAD, (-)JVD HEART: S1S2 WNL, RRR, No MRG CHEST: CTA, BL, GAE, No W/R/R ABD: Soft, ND/NT, NABS 4x Q EXT: No C/C/E SKIN: Warm to touch PSYCH: Could not be assessed given severe dementia Objective Active Medications: Acetaminophen (Tylenol Supp*) 650 mg [place] Q6H PRN PRN Reason: FEVER/PAIN Last Admin: 08/11/18 23:57 Dose: 650 mg Amiodarone HCl (Cordarone Tab*) 100 mg PO QAM [facility] Last Admin: 08/12/18 10:04 Dose: 100 mg Amlodipine Besylate (Norvasc Tab*) 5 mg PO DAILY [facility] Last Admin: 08/12/18 10:04 Dose: 5 mg Aspirin (Aspirin Ec Tab*) 81 mg PO DAILY [facility] Last Admin: 08/12/18 10:04 Dose: 81 mg Carvedilol (Coreg Tab*) 6.25 mg PO BID [facility] Last Admin: 08/12/18 10:04 Dose: 6.25 mg Dextrose (D50w Syringe 50 Ml*) 12.5 gm IV PUSH .FOR FS < 60 - SS PRN PRN Reason: FS < 60 Donepezil HCl (Aricept Tab*) 10 mg PO QPM [facility] Last Admin: 08/11/18 18:00 Dose: 10 mg Folic Acid (Folvite Tab*) 1 mg PO QAM [facility] Last Admin: 08/12/18 10:04 Dose: 1 mg Cefepime HCl 2 gm/ Sodium (Chloride) 100 mls @ 200 mls/hr IVPB Q24H [facility] Last Admin: 08/12/18 05:43 Dose: 200 mls/hr Insulin Glargine (Lantus(*)) 12 units SUBCUT Q24H [facility] Last Admin: 08/12/18 10:04 Dose: 12 units Insulin Human Lispro (Humalog*) 0 units SUBCUT ACHS [facility]; Protocol Last Admin: 08/12/18 10:05 Dose: 2 unit Insulin Human Lispro (Humalog*) 4 units SUBCUT AC [facility] Omeprazole (Prilosec Cap*) 20 mg PO DAILY [facility] Last Admin: 08/12/18 10:04 Dose: 20 mg Zinc Oxide (Zinc Oxide 40% (Topical)*) 1 applic TOPICAL BID [facility] Last Admin: 08/12/18 10:05 Dose: 1 applic Vital Signs - 8 hr 08/12/18 07:20 Temperature 98.0 F Pulse Rate 77 Respiratory 20 Rate Blood Pressure 126/64 (mmHg) O2 Sat by Pulse 100 Oximetry Oxygen Devices in Use Now: None Result Diagrams: 08/12/18 08:32 08/12/18 05:26 Microbiology and Other Data: Microbiology 08/06/18 20:10 Urine Culture - Final Urine Escherichia Coli 08/06/18 16:32 Aerobic Blood Culture - Preliminary Blood Venous Escherichia Coli Anaerobic Blood Culture - Preliminary Escherichia Coli 08/06/18 16:32 Aerobic Blood Culture - Preliminary Blood Venous Escherichia Coli Anaerobic Blood Culture - Preliminary Escherichia Coli 08/07/18 12:50 Stool Gross Appearance - Final Stool C. difficile DNA Amplification - Final 027 Presumptive NEGATIVE Toxigenic C.diff NEGATIVE 08/06/18 23:30 Stool Gross Appearance - Final Stool C. difficile DNA Amplification - Final Stool Lactoferrin - Final 08/06/18 18:50 Nasal Screen MRSA (PCR) - Final Nasal Mrsa Not Detected Assess/Plan/Problems-Billing Assessment: - Patient Problems (1) Fever Current Visit: Yes Status: Acute Code(s): R50.9 - FEVER, UNSPECIFIED SNOMED Code(s): 390620737 Comment: -Possibly due to a nosocomial infection -Will await results of repeat cultures -Will send for U/A; repeat CXR ordered this AM did not show any new consolidation (2) Change in mental status Current Visit: Yes Status: Acute Code(s): R41.82 - ALTERED MENTAL STATUS, UNSPECIFIED SNOMED Code(s): 887807279 Comment: -Likely due to above -Given D5W last night was not D/Cd given rate of correction (verbal order made but was not d/cd???), will check MRI of brain to evaluate for cerebral edema -Pt was found to be sleeping this morning but appears more like her usual self when she would open her eyes and happily greet examiner sometimes either saying hi, how are you, or I love you, which are reassuring signs (3) Hypernatremia Current Visit: Yes Status: Acute Code(s): E87.0 - HYPEROSMOLALITY AND HYPERNATREMIA SNOMED Code(s): 73536143 Comment: -Resolved -D/C D5W as discussed -D/W Dr. Breen who mentioned given her hyperglycemia, her corrected sodium level is about 13 points higher than shown initially -Likely due to diarrhea and HHS (4) Diabetes Current Visit: No Status: Acute Code(s): E11.9 - TYPE 2 DIABETES MELLITUS WITHOUT COMPLICATIONS SNOMED Code(s): 68622643 Comment: -Given D5W has now been D/Cd -Adjusted Insulin regimen after D/C of D5W -Continue current regimen -Spoke with Dr. Ramos and discussed case; will continue to observe pt if pt will need Insulin in the future given HSS likely induced by gastroenteritis and E. coli UTI with sepsis -HBa1c = 8.2 (08/10/18) (5) Sepsis secondary to UTI Current Visit: Yes Status: Acute Code(s): A41.9 - SEPSIS, UNSPECIFIED ORGANISM; N39.0 - URINARY TRACT INFECTION, SITE NOT SPECIFIED SNOMED Code(s): 654331874 Comment: -Cipro D/Cd last night given fever and MS change and now on Cefepime -Per Amena (her RN today), repeat U/A after antibiotic change seems dirty. Will await pending results -CT of abd/pelvis obtained which did not show any concerns for abscess by Dr. Ramos as previously discussed -CT, however, shows possible gastroenteritis and given positive lactoferin in stools, will change antibiotic to Cipro until ruled out for bacterial causes of gastroenteritis; most likely viral given leukocytosis improving with Cephalosporin alonewill continue to follow (6) Gastroenteritis Current Visit: Yes Status: Acute Code(s): K52.9 - NONINFECTIVE GASTROENTERITIS AND COLITIS, UNSPECIFIED SNOMED Code(s): 61128715 Comment: -Improved -As above; stool studies negative for enteroinvasive bacteria -Likely viral and likely exacerbated by UTI with sepsis as discussed above; however, given (+) lactoferin in stools, changed antibiotic in stools until stool studies are resulted then may switch back to cephalosporins (7) Troponin level elevated Current Visit: Yes Status: Acute Code(s): R74.8 - ABNORMAL LEVELS OF OTHER SERUM ENZYMES SNOMED Code(s): 169802855 Comment: -Likely due to SHELLI in the setting of sepsis (8) DVT prophylaxis Current Visit: No Status: Acute Code(s): BSB0654 - SNOMED Code(s): 227547064 Comment: -Continue Lovenox SQ Status and Disposition: -Discussed case with Dr. Ramos ([phone]) -Discussed case with daughter on 08/10 that there is possibility that pt may require placement given pt is not yet at baseline and unable to ambulate -Pt to re-evaluate subsequent needs -As above
[2018-08-12 12:25] LABS: Urine Appearance Cloudy; Urine Color Yellow; Urine Ketones Negative (Negative); Urine Protein 2+(100 mg/dL) (Negative); Urine Specific Gravity 1.005 (1.010-1.030); Urine Urobilinogen Negative (Negative)
[2018-08-12 12:26] LABS: Urine Blood 1+ (Negative)
[2018-08-12 12:37] LABS: Urine Red Blood Cell 3+(>10/hpf) (Absent); Urine White Blood Cell 3+(>20/hpf) (Absent)
--- NOTE | 2018-08-12 17:04 | RAD ---
Indication: Confusion. Sagittal and axial T1, axial T2, FLAIR, diffusion and susceptibility weighted images of the brain were obtained. Ventricular structures are midline. No midline shift is noted. There is central and cortical atrophy noted. There is no evidence of intracranial mass or hemorrhage. Periventricular lucency consistent with chronic ischemic White matter change is noted. Diffusion-weighted images demonstrates no restriction of diffusion. Mastoid air cells and paranasal sinuses are otherwise unremarkable. Orbits are intact. IMPRESSION: Chronic ischemic White matter change is noted. No intracranial mass or hemorrhage is noted. No restriction of diffusion is noted.
[2018-08-12] MEDS: Donepezil TAB* 5 MG PO SCH (17:45)
[2018-08-12] MEDS: Acetaminophen SUPP* 650 MG SUPP PR PRN (17:59)
[2018-08-13] MEDS: NS 0.9% IVPB SCH (05:16)
[2018-08-13] MEDS: CEFEPIME ADVAN IVPB SCH (05:16)
[2018-08-13 07:38] LABS: Hematocrit 25 % (35-47); Hemoglobin 8.1 g/dl (12.0-16.0); Mean Corpuscular HGB Conc 33 g/dl (31-36); Mean Corpuscular Hemoglobin 31 pg (27-31); Mean Corpuscular Volume 94 fL (80-97); Mean Platelet Volume 9.9 um3 (7.4-10.4); Platelet Count 66 10^3/ul (150-450); Red Blood Count 2.64 10^6/ul (4.00-5.40); Red Cell Distribution Width 18 % (10.5-15); White Blood Count 4.5 10^3/ul (3.5-10.8)
[2018-08-13 07:52] LABS: EGFR Non-African American 29.1 (>60)
--- NOTE | 2018-08-13 08:07 | PN ---
Subjective Date of Service: 08/13/18 Interval History: Patient not able to make her needs known. Objective Active Medications: Acetaminophen (Tylenol Supp*) 650 mg IN Q6H PRN PRN Reason: FEVER/PAIN Last Admin: 08/12/18 17:59 Dose: 650 mg Amiodarone HCl (Cordarone Tab*) 100 mg PO QAM [facility] Last Admin: 08/12/18 10:04 Dose: 100 mg Amlodipine Besylate (Norvasc Tab*) 2.5 mg PO DAILY [facility] Aspirin (Aspirin Ec Tab*) 81 mg PO DAILY [facility] Last Admin: 08/12/18 10:04 Dose: 81 mg Carvedilol (Coreg Tab*) 6.25 mg PO BID [facility] Last Admin: 08/12/18 23:26 Dose: 6.25 mg Dextrose (D50w Syringe 50 Ml*) 12.5 gm IV PUSH .FOR FS < 60 - SS PRN PRN Reason: FS < 60 Donepezil HCl (Aricept Tab*) 10 mg PO QPM [facility] Last Admin: 08/12/18 17:45 Dose: 10 mg Folic Acid (Folvite Tab*) 1 mg PO QAM [facility] Last Admin: 08/12/18 10:04 Dose: 1 mg Cefepime HCl 2 gm/ Sodium (Chloride) 100 mls @ 200 mls/hr IVPB Q24H [facility] Last Admin: 08/13/18 05:16 Dose: 200 mls/hr Insulin Glargine (Lantus(*)) 12 units SUBCUT Q24H [facility] Last Admin: 08/12/18 10:04 Dose: 12 units Insulin Human Lispro (Humalog*) 0 units SUBCUT ACHS [facility]; Protocol Last Admin: 08/12/18 23:26 Dose: Not Given Insulin Human Lispro (Humalog*) 4 units SUBCUT AC [facility] Last Admin: 08/12/18 17:45 Dose: 4 units Omeprazole (Prilosec Cap*) 20 mg PO DAILY [facility] Last Admin: 08/12/18 10:04 Dose: 20 mg Zinc Oxide (Zinc Oxide 40% (Topical)*) 1 applic TOPICAL BID [facility] Last Admin: 08/12/18 23:27 Dose: 1 applic Vital Signs - 8 hr 08/13/18 04:22 Temperature 98.8 F Pulse Rate 68 Respiratory 17 Rate Blood Pressure 127/45 (mmHg) O2 Sat by Pulse 93 Oximetry Oxygen Devices in Use Now: None, Nasal Cannula Appearance: Alert, partly up in bed. Smiles socially, looks comfortable. Eyes: No Scleral Icterus Respiratory: Symmetrical Chest Expansion and Respiratory Effort Result Diagrams: 08/13/18 06:59 08/13/18 06:59 Microbiology and Other Data: Microbiology 08/06/18 20:10 Urine Culture - Final Urine Escherichia Coli 08/06/18 16:32 Aerobic Blood Culture - Preliminary Blood Venous Escherichia Coli Anaerobic Blood Culture - Preliminary Escherichia Coli 08/06/18 16:32 Aerobic Blood Culture - Preliminary Blood Venous Escherichia Coli Anaerobic Blood Culture - Preliminary Escherichia Coli 08/07/18 12:50 Stool Gross Appearance - Final Stool C. difficile DNA Amplification - Final 027 Presumptive NEGATIVE Toxigenic C.diff NEGATIVE 08/06/18 23:30 Stool Gross Appearance - Final Stool C. difficile DNA Amplification - Final Stool Lactoferrin - Final 08/06/18 18:50 Nasal Screen MRSA (PCR) - Final Nasal Mrsa Not Detected Assess/Plan/Problems-Billing Assessment: - Patient Problems (1) Sepsis Current Visit: Yes Status: Acute Comment: New fever after treatment for E. coli UTI with bacteremia. ? recurrent UTI, aspiration, other. Bladder scan, ST swallow eval, NPO, continue cefepime. (2) Diabetes Current Visit: No Status: Acute Code(s): E11.9 - TYPE 2 DIABETES MELLITUS WITHOUT COMPLICATIONS SNOMED Code(s): 34174634 Comment: HBa1c = 8.2 (08/10/18) Stop fixed dose Lispro as of 08/13, continue SSI. (3) Atrial fibrillation with RVR Current Visit: No Status: Acute Priority: High Onset Date: 07/17/14 Code (s): I48.91 - UNSPECIFIED ATRIAL FIBRILLATION SNOMED Code(s): 567269661169070 Comment: In NSR consistently for some time. Resume carvedilol and amiodarone when OK'd by ST. (4) Change in mental status Current Visit: Yes Status: Acute Code(s): R41.82 - ALTERED MENTAL STATUS, UNSPECIFIED SNOMED Code(s): 169965194 Comment: Not clear what her true baseline is. I would like to talk to close family members. If her oral intake and/or swallowing function is poor, Hospice may be appropriate. (5) Hypernatremia Current Visit: Yes Status: Acute Code(s): E87.0 - HYPEROSMOLALITY AND HYPERNATREMIA SNOMED Code(s): 56591673 Comment: Na+ 146 08/13. Hypotonic IV fluids started 08/13, repeat BMP 08/14. (6) CKD (chronic kidney disease) stage 3, GFR 30-59 ml/min Current Visit: No Status: Acute Code(s): N18.3 - CHRONIC KIDNEY DISEASE, STAGE 3 (MODERATE) SNOMED Code(s): 460119124 Comment: Hypotonic IV fluids started 08/13, repeat BMP 08/14. (7) Rheumatoid arthritis Current Visit: No Status: Acute Code(s): M06.9 - RHEUMATOID ARTHRITIS, UNSPECIFIED SNOMED Code(s): 35544405 Comment: MTX on hold due to sepsis. (8) HTN (hypertension) Current Visit: No Status: Acute Code(s): I10 - ESSENTIAL (PRIMARY) HYPERTENSION SNOMED Code(s): 82746523 Comment: Amlodipine reduced to 2.5 mg 08/13 but not given 08/13 AM, consider giving later 08/[address] Status and Disposition: -Discussed case with Dr. Ramos ([phone]) -Discussed case with daughter on 08/10 that there is possibility that pt may require placement given pt is not yet at baseline and unable to ambulate -Pt to re-evaluate subsequent needs -As above
[2018-08-13 08:20] LABS: ABS Basophils 0 10^3/ul (0-0.2); ABS Eosinophils 0.2 10^3/ul (0-0.6); ABS Lymphocytes 0.9 10^3/ul (1.0-4.8); ABS Monocytes 0.2 10^3/ul (0-0.8); ABS Neutrophils 3.2 10^3/ul (1.5-7.7); ABS Nucleated RBC 0 10^3/ul; Eosinophil % 3.5 % (0-6); Lymphocyte % 19.8 % (25-47); Nucleated Red Blood Cells % 0.2
[2018-08-13] MEDS: NS 0.45% KCl 20 Meq 1000 ML* 1,000 ML IV SCH ×2 (08:23→18:11)
[2018-08-13] MEDS: Amiodarone TAB* 200 MG PO SCH (08:40)
[2018-08-13] MEDS: Insulin LISPRO* 1 UNITS UNIT SUBCUT SCH ×5 (08:40→21:53)
[2018-08-13] MEDS: Omeprazole CAP* 20 MG PO SCH (08:41)
[2018-08-13] MEDS: Folic Acid TAB* 1 MG PO SCH (08:41)
[2018-08-13] MEDS: Aspirin EC TAB* 81 MG TAB.EC PO SCH (08:41)
[2018-08-13] MEDS: Carvedilol TAB* 6.25 MG PO SCH ×2 (08:41→21:53)
[2018-08-13] MEDS: amLODIPine TAB* 5 MG PO SCH (08:41)
[2018-08-13] MEDS: Insulin GLARGINE(*) 1 UNITS UNIT SUBCUT SCH (10:48)
[2018-08-13] MEDS: Zinc Oxide 40% (TOPICAL)* TUBE TOPICAL SCH ×2 (10:49→21:54)
--- NOTE | 2018-08-13 13:30 | ECHO ---
Patient: VIRGIE MERRILL [facility] Rec#: [id number] : 1935 Date: 08/13/2018 Age: 83y Height: 152 cm / 59.8 in Weight: 50 kg / 110.2 lbs Sex: F BSA: 1.45 Room#: 406 Admit Date#: 08/06/2018 Type: Inpatient Referring: Татьяна Oswald NP Reading: Ailyn Bella MD Director Patient: Brandee Patterson RDCS CC: Lynn Whitlock MD Transthoracic Echocardiogram Indication: Bacteremia BP: 127/45 HR: 73 Rhythm: NSR Findings History: Rheumatoid arthritis,DM,HTN,HLD,dementia,CHF,CKD,cardiomyopathy. Technical Comments: The study is technically limited due to poor apical windows. Limited patient cooperation with positioning was noted. Completed at 1102. Left Ventricle: The left ventricular chamber size is normal. There is a focal wall motion abnormality present.Base of the posterior wall is hypo and dyskinetic seen in short axis and 3 chamber views. All other regions show normal to hyperdynamic systolic function. There is normal left ventricular systolic function. The estimated ejection fraction is 55-60%. The left ventricular diastolic filling pattern is consistent with pseudonormalization. The left ventricular diastolic filling pattern is consistent with elevated left ventricular end-diastolic pressure. Left Atrium: The left atrium is not well visualized. Right Ventricle: The right ventricle is not well visualized. The right ventricular global systolic function is normal. Right Atrium: The right atrium is not well visualized. Aortic Valve: The aortic valve is trileaflet. There is no evidence of aortic valve thickening. There is no evidence of aortic regurgitation. There is no evidence of aortic stenosis. Mitral Valve: There is mitral annular calcification. The mitral valve leaflets are mildly thickened. There is mild mitral regurgitation. The mitral regurgitant jet is medially directed. There is no evidence of mitral stenosis. Tricuspid Valve: The tricuspid valve leaflets are normal. There is moderate tricuspid regurgitation. The right ventricular systolic pressure is estimated at 47 mmHg. There is evidence of moderate pulmonary hypertension. There is no tricuspid stenosis. Pulmonic Valve: The pulmonic valve appears normal. There is trace to mild pulmonic regurgitation. There is no pulmonic stenosis. Pericardium: The pericardium appears normal. Aorta: There is no dilatation of the ascending aorta. There is no dilatation of the aortic arch. There is no dilation of the aortic root. Pulmonary Artery: The main pulmonary artery appears normal. Venous: The inferior vena cava appears normal in size. There is a greater than 50% respiratory change in the inferior vena cava dimension. Conclusions The left ventricular chamber size is normal. Base of the posterior wall is hypo and dyskinetic seen in short axis and 3 chamber views, all other regions show normal to hyperdynamic systolic function. The estimated ejection fraction is 55-60%. The left ventricular diastolic filling pattern is consistent with pseudonormalization. The left ventricular diastolic filling pattern is consistent with elevated left ventricular end-diastolic pressure. The right ventricular global systolic function is normal. No vegetations noted on any valve. The mitral valve leaflets are mildly thickened. There is mild mitral regurgitation. There is moderate tricuspid regurgitation. The PA pressure is moderately elevated, estimated at 47 mmHg. Compared with prior study of 07/18/14, EF has improved from 15%, restrictive diastolic filling has improved to grade 2, aortic valve function is stable, mr previously moderate, TR is stable, PA pressure has improved from 64 mmHg. Measurements Name Value Normal Range RVIDd (AP) 2D 2.2 cm (0.9 - 2.6) IVSd (2D) 1 cm (0.6 - 1) LVPWd (2D) 0.8 cm (0.6 - 1) LVIDd (2D) 3.7 cm (3.6 - 5.4) LVIDs (2D) 2.8 cm - LV FS (2D) 19 % (25 - 45) Aortic Annulus 2 cm (1.4 - 2.6) Ao root diameter (2D) 2.7 cm (2.1 - 3.5) Ascending Ao 3 cm (2.1 - 3.4) Aortic arch 3.2 cm (1.8 - 3.4) Descending Ao 0.4 cm - LA dimension (AP) 2D 2.4 cm (2.3 - 3.8) Name Value Normal Range MV E-wave Vmax 1.1 m/sec - MV deceleration time 158 msec - MV A-wave Vmax 1 m/sec - MV E:A ratio 1.2 ratio - LV septal e' Vmax 0.07 m/sec - LV lateral e' Vmax 0.08 m/sec - LV E:e' septal ratio 15.71 ratio - LV E:e' lateral ratio 13.75 ratio - Name Value Normal Range AV Vmax 1.4 m/sec - AV VTI 29.7 cm - AV peak gradient 8 mmHg - AV mean gradient 4 mmHg - LVOT Vmax 0.9 m/sec - LVOT VTI 21.4 cm - LVOT peak gradient 4 mmHg - LVOT mean gradient 2 mmHg - Name Value Normal Range TR Vmax 3.2 m/sec - TR peak gradient 44 mmHg - RAP 3 mmHg - RVSP 47 mmHg - IVC diameter 0.9 cm - Name Value Normal Range PV Vmax 1.2 m/sec - PV peak gradient 6 mmHg -
--- NOTE | 2018-08-13 17:13 | PN ---
Progress Note - Progress Note Date of Service: 08/13/18 Note: I spoke with the daughter in person about dx and prognosis and management. She accepts that the patient will eventually continue to decline and at some point will not eat enough or drink enough to maintain herself, in which case she would not want IV hydration or artificial nutrition.
[2018-08-13] MEDS: Donepezil TAB* 5 MG PO SCH (18:08)
[2018-08-14] MEDS: NS 0.45% KCl 20 Meq 1000 ML* 1,000 ML IV SCH ×3 (02:12→19:41)
[2018-08-14] MEDS: Cefepime 2 GM in Dextrose(*) 2 GM/50 ML BAG IV SCH (06:11)
[2018-08-14 08:12] LABS: EGFR Non-African American 32.9 (>60)
[2018-08-14] MEDS: Insulin LISPRO* 1 UNITS UNIT SUBCUT SCH ×4 (09:34→21:14)
[2018-08-14] MEDS: Insulin GLARGINE(*) 1 UNITS UNIT SUBCUT SCH (09:46)
[2018-08-14] MEDS: Folic Acid TAB* 1 MG PO SCH (09:47)
[2018-08-14] MEDS: Carvedilol TAB* 6.25 MG PO SCH ×2 (09:47→21:15)
[2018-08-14] MEDS: Amiodarone TAB* 200 MG PO SCH (09:47)
[2018-08-14] MEDS: Omeprazole CAP* 20 MG PO SCH (09:47)
[2018-08-14] MEDS: amLODIPine TAB* 5 MG PO SCH (09:48)
[2018-08-14 10:00] LABS: ABS Basophils 0.1 10^3/ul (0-0.2); ABS Eosinophils 0.2 10^3/ul (0-0.6); ABS Lymphocytes 0.9 10^3/ul (1.0-4.8); ABS Monocytes 0.3 10^3/ul (0-0.8); ABS Neutrophils 1.6 10^3/ul (1.5-7.7); ABS Nucleated RBC 0 10^3/ul; Eosinophil % 5.3 % (0-6); Hematocrit 24 % (35-47); Lymphocyte % 29.3 % (25-47); Mean Corpuscular HGB Conc 33 g/dl (31-36); Mean Corpuscular Hemoglobin 31 pg (27-31); Mean Corpuscular Volume 94 fL (80-97); Nucleated Red Blood Cells % 0; Platelet Count 89 10^3/ul (150-450); Red Blood Count 2.61 10^6/ul (4.00-5.40); Red Cell Distribution Width 18 % (10.5-15); White Blood Count 2.9 10^3/ul (3.5-10.8)
[2018-08-14] MEDS: Aspirin EC TAB* 81 MG TAB.EC PO SCH (10:31)
[2018-08-14] MEDS: Zinc Oxide 40% (TOPICAL)* TUBE TOPICAL SCH ×2 (10:33→21:15)
--- NOTE | 2018-08-14 13:45 | PN ---
Subjective Date of Service: 08/14/18 Interval History: Patient seen and examined at bedside. Denies fever, chills, shortness of breath , chest discomfort, N/V/D. Pt states that she is feeling better. Tele: Sinus rhytm, rate 60's. Family History: Unchanged from Admission Social History: Unchanged from Admission Past Medical History: Unchanged from Admission Objective Active Medications: Acetaminophen (Tylenol Supp*) 650 mg [place] Q6H PRN Reason: FEVER/PAIN Amiodarone HCl (Cordarone Tab*) 100 mg PO QAM [facility] Amlodipine Besylate (Norvasc Tab*) 2.5 mg PO DAILY [facility] Aspirin (Aspirin Ec Tab*) 81 mg PO DAILY [facility] Carvedilol (Coreg Tab*) 6.25 mg PO BID [facility] Dextrose (D50w Syringe 50 Ml*) 12.5 gm IV PUSH .FOR FS < 60 - SS PRN Reason: FS < 60 Donepezil HCl (Aricept Tab*) 10 mg PO QPM [facility] Folic Acid (Folvite Tab*) 1 mg PO QAM [facility] Potassium Chloride/Sodium Chloride (Ns 0.45% Kcl 20 Meq 1000 Ml*) 1,000 mls @ 125 mls/hr IV PER RATE [facility] Cefepime HCl (Maxipime 2 Gm In Dextrose Duplex (*)) 2 gm in 50 mls @ 100 mls/ hr IV Q24H [facility] Insulin Glargine (Lantus(*)) 12 units SUBCUT Q24H [facility] Insulin Human Lispro (Humalog*) 0 units SUBCUT ACHS [facility]; Protocol Omeprazole (Prilosec Cap*) 20 mg PO DAILY [facility] Zinc Oxide (Zinc Oxide 40% (Topical)*) 1 applic TOPICAL BID [facility] Vital Signs - 8 hr 08/14/18 08/14/18 08/14/18 08:00 08:03 11:20 Temperature 99.7 F 97.6 F Pulse Rate 79 69 Respiratory 16 18 16 Rate Blood Pressure 170/71 131/62 (mmHg) O2 Sat by Pulse 98 91 Oximetry 08/14/18 12:00 Temperature Pulse Rate Respiratory Rate Blood Pressure (mmHg) O2 Sat by Pulse 97 Oximetry Oxygen Devices in Use Now: None Appearance: NAD, laying in bed Ears/Nose/Mouth/Throat: Mucous Membranes Moist Respiratory: Symmetrical Chest Expansion and Respiratory Effort, Clear to Auscultation Cardiovascular: NL Sounds; No Murmurs; No JVD, RRR Abdominal: NL Sounds; No Tenderness; No Distention Extremities: No Edema Skin: No Rash or Ulcers Neurological: NL Muscle Strength and Tone, - - Alert and Oriented to self, confused Lines/Tubes/Other Access: Clean, Dry and Intact Peripheral IV - site benign Nutrition: Taking PO's Result Diagrams: 08/14/18 09:48 08/14/18 07:07 Microbiology and Other Data: Microbiology 08/06/18 20:10 Urine Culture - Final Urine Escherichia Coli 08/06/18 16:32 Aerobic Blood Culture - Preliminary Blood Venous Escherichia Coli Anaerobic Blood Culture - Preliminary Escherichia Coli 08/06/18 16:32 Aerobic Blood Culture - Preliminary Blood Venous Escherichia Coli Anaerobic Blood Culture - Preliminary Escherichia Coli 08/07/18 12:50 Stool Gross Appearance - Final Stool C. difficile DNA Amplification - Final 027 Presumptive NEGATIVE Toxigenic C.diff NEGATIVE 08/06/18 23:30 Stool Gross Appearance - Final Stool C. difficile DNA Amplification - Final Stool Lactoferrin - Final 08/06/18 18:50 Nasal Screen MRSA (PCR) - Final Nasal Mrsa Not Detected 08/12/18 10:50 Urine Urine Culture - Final Staphylococcus Sciuri 08/08/18 21:09 Stool Stool Culture - Final 08/08/18 21:09 Stool Shiga Toxin I & II - Final 08/07/18 12:50 Stool Stool Gross Appearance - Final 08/07/18 12:50 Stool C. difficile DNA Amplification - Final 027 Presumptive NEGATIVE Toxigenic C.diff NEGATIVE 08/12/18 05:27 Blood Venous Aerobic Blood Culture - Preliminary 08/12/18 05:27 Blood Venous Anaerobic Blood Culture - Preliminary No Growth Day 2 No Growth Day 2 08/12/18 05:26 Blood Venous Aerobic Blood Culture - Preliminary 08/12/18 05:26 Blood Venous Anaerobic Blood Culture - Preliminary No Growth Day 2 No Growth Day 2 Assess/Plan/Problems-Billing Assessment: Ms. Messina is an 83 yo female with PMH significant for cadiomyopathy, Afib, DM, CKD-3, HTN, HLD, RA, GERD, dementia, anxiety, essential tremor who presented to the emergency room with complaints of - Patient Problems (1) Sepsis Comment: - Afebrile for ~ 48 hours - Resolved (2) Urinary tract infection Comment: - Afebrile ~ 48 hours and no leukocytosis - With E Coli bacteremia on admission - Initially on Cipro and changed to Cefpime with persistent fevers and MS change - Admission urine culture with E Coli 100K - Repeat urine culture with Staph Sciuri, it appears this sample was obtained by [facility] - Repeat blood cultures, no growth day 2 - CT of abd/pelvis obtained which did not show any concerns for abscess. However , shows possible gastroenteritis and given positive lactoferin in stools. May be viral given leukocytosis improving with Cephalosporin alone - Continue cefepime - Will repeat UA (3) Fever Code(s): R50.9 - FEVER, UNSPECIFIED SNOMED Code(s): 587142184 Comment: - Afebrile for ~ 48 hours - See above (4) Urinary retention Code(s): R33.9 - RETENTION OF URINE, UNSPECIFIED SNOMED Code(s): 464409232 Comment: - Acute urinary retention - New catheter placed yesterday - Will attempt to remove in the AM for a voiding trial (5) Change in mental status Code(s): R41.82 - ALTERED MENTAL STATUS, UNSPECIFIED SNOMED Code(s): 510725200 Comment: - Not clear what her true baseline is - If her oral intake and/or swallowing function is poor, Hospice may be appropriate (6) Hypernatremia Code(s): E87.0 - HYPEROSMOLALITY AND HYPERNATREMIA SNOMED Code(s): 74591142 Comment: - Na+ 146 08/13 and 143 today - Continue Hypotonic IV fluids overnight, repeat BMP in AM (7) Troponin level elevated Code(s): R74.8 - ABNORMAL LEVELS OF OTHER SERUM ENZYMES SNOMED Code(s): 548912496 Comment: - Suspect secondary to SHELLI in the setting of sepsis (8) CKD (chronic kidney disease) stage 3, GFR 30-59 ml/min Code(s): N18.3 - CHRONIC KIDNEY DISEASE, STAGE 3 (MODERATE) SNOMED Code(s): 397799769 Comment: - Creatinine improving with Hypotonic IV fluids - Continue to follow BMP and avoid nephrotoxic agents (9) Diabetes Code(s): E11.9 - TYPE 2 DIABETES MELLITUS WITHOUT COMPLICATIONS SNOMED Code(s) : 74009624 Comment: - Glucose 120-280's - HgA1c = 8.2 (08/10/18) - Continue Lispro SSI (10) DVT prophylaxis Code(s): JOG2850 - SNOMED Code(s): 540458022 Comment: - Chemical DVT prophylaxis held d/t thrombocytopenia - SCDs (11) DNR (do not resuscitate) Status and Disposition: Inpatient. Discharge to rehab vs Hospice when medically stable, pending results of repeat UA/UC.
[2018-08-14] MEDS: Donepezil TAB* 5 MG PO SCH (17:32)
[2018-08-14 21:11] LABS: Urine Appearance Clear; Urine Blood 1+ (Negative); Urine Color Straw; Urine Ketones Negative (Negative); Urine Protein 1+(30 mg/dL) (Negative); Urine Specific Gravity 1.005 (1.010-1.030); Urine Urobilinogen Negative (Negative)
[2018-08-14 21:16] LABS: Urine Red Blood Cell 1+(3-5/hpf) (Absent); Urine White Blood Cell 2+(11-20/hpf) (Absent)
[2018-08-15] MEDS: NS 0.45% KCl 20 Meq 1000 ML* 1,000 ML IV SCH ×2 (03:55→12:57)
[2018-08-15] MEDS: Cefepime 2 GM in Dextrose(*) 2 GM/50 ML BAG IV SCH (05:23)
[2018-08-15 06:42] LABS: Hematocrit 26 % (35-47); Hemoglobin 8.6 g/dl (12.0-16.0); Mean Corpuscular HGB Conc 34 g/dl (31-36); Mean Corpuscular Hemoglobin 31 pg (27-31); Mean Corpuscular Volume 92 fL (80-97); Mean Platelet Volume 9.8 um3 (7.4-10.4); Platelet Count 133 10^3/ul (150-450); Red Blood Count 2.76 10^6/ul (4.00-5.40); Red Cell Distribution Width 18 % (10.5-15); White Blood Count 2.7 10^3/ul (3.5-10.8)
[2018-08-15 06:43] LABS: ABS Basophils 0 10^3/ul (0-0.2); ABS Eosinophils 0.2 10^3/ul (0-0.6); ABS Lymphocytes 1.1 10^3/ul (1.0-4.8); ABS Monocytes 0.4 10^3/ul (0-0.8); ABS Nucleated RBC 0 10^3/ul
[2018-08-15 07:11] LABS: EGFR Non-African American 35.6 (>60)
[2018-08-15] MEDS: Insulin LISPRO* 1 UNITS UNIT SUBCUT SCH ×4 (07:28→20:38)
[2018-08-15 07:29] LABS: ABS Basophils 0 10^3/ul (0-0.2); Monocytes % 11 % (0-7)
[2018-08-15] MEDS: Insulin GLARGINE(*) 1 UNITS UNIT SUBCUT SCH (08:55)
[2018-08-15] MEDS: Omeprazole CAP* 20 MG PO SCH (08:56)
[2018-08-15] MEDS: Amiodarone TAB* 200 MG PO SCH (08:56)
[2018-08-15] MEDS: Carvedilol TAB* 6.25 MG PO SCH ×2 (08:56→20:38)
[2018-08-15] MEDS: Folic Acid TAB* 1 MG PO SCH (08:56)
[2018-08-15] MEDS: amLODIPine TAB* 5 MG PO SCH (08:57)
[2018-08-15] MEDS: Aspirin EC TAB* 81 MG TAB.EC PO SCH (09:00)
[2018-08-15] MEDS: Zinc Oxide 40% (TOPICAL)* TUBE TOPICAL SCH ×2 (09:01→20:38)
--- NOTE | 2018-08-15 15:38 | PN ---
Subjective Date of Service: 08/15/18 Interval History: Patient seen and examined at bedside. Pt is smiling and sitting up in bed with her daughter at bedside. She is unaware of who her daughter is. She denies complaints. Discussed with Pt's daughter that she will likely be ready for discharged to [facility] home on Saturday. We will work on transitioning her medications from IV to PO. Tele: Sinus rhythm, rate 70-80's Family History: Unchanged from Admission Social History: Unchanged from Admission Past Medical History: Unchanged from Admission Objective Active Medications: Acetaminophen (Tylenol Supp*) 650 mg [place] Q6H PRN Reason: FEVER/PAIN Amiodarone HCl (Cordarone Tab*) 100 mg PO QAM [facility] Amlodipine Besylate (Norvasc Tab*) 2.5 mg PO DAILY [facility] Aspirin (Aspirin Ec Tab*) 81 mg PO DAILY [facility] Carvedilol (Coreg Tab*) 6.25 mg PO BID [facility] Dextrose (D50w Syringe 50 Ml*) 12.5 gm IV PUSH .FOR FS < 60 - SS PRN Reason: FS < 60 Donepezil HCl (Aricept Tab*) 10 mg PO QPM [facility] Folic Acid (Folvite Tab*) 1 mg PO QAM [facility] Potassium Chloride/Sodium Chloride (Ns 0.45% Kcl 20 Meq 1000 Ml*) 1,000 mls @ 125 mls/hr IV PER RATE [facility] Cefepime HCl (Maxipime 2 Gm In Dextrose Duplex (*)) 2 gm in 50 mls @ 100 mls/ hr IV Q24H [facility] Insulin Glargine (Lantus(*)) 12 units SUBCUT Q24H [facility] Insulin Human Lispro (Humalog*) 0 units SUBCUT ACHS [facility]; Protocol Omeprazole (Prilosec Cap*) 20 mg PO DAILY [facility] Zinc Oxide (Zinc Oxide 40% (Topical)*) 1 applic TOPICAL BID [facility] Vital Signs - 8 hr 08/15/18 08/15/18 08/15/18 07:39 07:46 13:08 Temperature 98.7 F 97.3 F Pulse Rate 85 66 Respiratory 16 16 18 Rate Blood Pressure 130/45 133/49 (mmHg) O2 Sat by Pulse 96 97 Oximetry Oxygen Devices in Use Now: None Appearance: NAD, sitting up in bed Ears/Nose/Mouth/Throat: Mucous Membranes Moist Respiratory: Symmetrical Chest Expansion and Respiratory Effort, Clear to Auscultation Cardiovascular: NL Sounds; No Murmurs; No JVD, RRR Abdominal: NL Sounds; No Tenderness; No Distention Extremities: No Edema Skin: No Rash or Ulcers Neurological: NL Muscle Strength and Tone, - - Alert and Oriented to self Lines/Tubes/Other Access: Clean, Dry and Intact Peripheral IV - site benign Nutrition: Taking PO's Result Diagrams: 08/15/18 06:35 08/15/18 06:35 Microbiology and Other Data: Microbiology 08/06/18 20:10 Urine Culture - Final Urine Escherichia Coli 08/06/18 16:32 Aerobic Blood Culture - Preliminary Blood Venous Escherichia Coli Anaerobic Blood Culture - Preliminary Escherichia Coli 08/06/18 16:32 Aerobic Blood Culture - Preliminary Blood Venous Escherichia Coli Anaerobic Blood Culture - Preliminary Escherichia Coli 08/07/18 12:50 Stool Gross Appearance - Final Stool C. difficile DNA Amplification - Final 027 Presumptive NEGATIVE Toxigenic C.diff NEGATIVE 08/06/18 23:30 Stool Gross Appearance - Final Stool C. difficile DNA Amplification - Final Stool Lactoferrin - Final 08/06/18 18:50 Nasal Screen MRSA (PCR) - Final Nasal Mrsa Not Detected 08/12/18 10:50 Urine Urine Culture - Final Staphylococcus Sciuri 08/08/18 21:09 Stool Stool Culture - Final 08/08/18 21:09 Stool Shiga Toxin I & II - Final 08/07/18 12:50 Stool Stool Gross Appearance - Final 08/07/18 12:50 Stool C. difficile DNA Amplification - Final 027 Presumptive NEGATIVE Toxigenic C.diff NEGATIVE 08/12/18 05:27 Blood Venous Aerobic Blood Culture - Preliminary 08/12/18 05:27 Blood Venous Anaerobic Blood Culture - Preliminary No Growth Day 2 No Growth Day 2 08/12/18 05:26 Blood Venous Aerobic Blood Culture - Preliminary 08/12/18 05:26 Blood Venous Anaerobic Blood Culture - Preliminary No Growth Day 2 No Growth Day 2 Assess/Plan/Problems-Billing Assessment: Ms. Messina is an 83 yo female with PMH significant for cadiomyopathy, Afib, DM, CKD-3, HTN, HLD, RA, GERD, dementia, anxiety, essential tremor who presented to the emergency room with complaints of - Patient Problems (1) Sepsis Comment: - Afebrile for ~ 72 hours - Resolved (2) Urinary tract infection Comment: - Afebrile ~ 72 hours and no leukocytosis - With E Coli bacteremia on admission - Initially on Cipro and changed to Cefpime with persistent fevers and MS change - Admission urine culture with E Coli 100K - Repeat urine culture with Staph Sciuri, it appears this sample was obtained by st. cath - Repeat blood cultures, no growth day 3 - Repeat UA pending - Change cefepime to PO Cipro (3) Fever Code(s): R50.9 - FEVER, UNSPECIFIED SNOMED Code(s): 907975708 Comment: - Afebrile for ~ 48 hours - See above (4) Abnormal CBC Code(s): R79.89 - OTHER SPECIFIED ABNORMAL FINDINGS OF BLOOD CHEMISTRY SNOMED Code(s): 799444512 Comment: - Leukopenia. Suspect this may be related to Cefepime - Thrombocytopenia. Improving. Supect this may be related to Cefepime - Recheck labs in the morning and change ABX per above (5) Urinary retention Code(s): R33.9 - RETENTION OF URINE, UNSPECIFIED SNOMED Code(s): 345788829 Comment: - Acute urinary retention resolved (6) Change in mental status Code(s): R41.82 - ALTERED MENTAL STATUS, UNSPECIFIED SNOMED Code(s): 446868174 Comment: - Near baseline per her daughter - If her oral intake is poor, Hospice may be appropriate (7) Hypernatremia Code(s): E87.0 - HYPEROSMOLALITY AND HYPERNATREMIA SNOMED Code(s): 73346117 Comment: - Resolved - Discontinue Hypotonic IV fluids, repeat BMP in AM (8) Troponin level elevated Code(s): R74.8 - ABNORMAL LEVELS OF OTHER SERUM ENZYMES SNOMED Code(s): 011540358 Comment: - Suspect secondary to SHELLI in the setting of sepsis (9) CKD (chronic kidney disease) stage 3, GFR 30-59 ml/min Code(s): N18.3 - CHRONIC KIDNEY DISEASE, STAGE 3 (MODERATE) SNOMED Code(s): 775719680 Comment: - Creatinine improving - Continue to follow BMP and avoid nephrotoxic agents (10) Diabetes Code(s): E11.9 - TYPE 2 DIABETES MELLITUS WITHOUT COMPLICATIONS SNOMED Code(s) : 62874622 Comment: - Glucose 130-340's - HgA1c = 8.2 (08/10/18) - Continue Lantus and Lispro SSI (11) DVT prophylaxis Code(s): DJU4795 - SNOMED Code(s): 630334175 Comment: - Chemical DVT prophylaxis held d/t thrombocytopenia - SCDs (12) DNR (do not resuscitate) Status and Disposition: Inpatient. Discharge to rehab vs Hospice when medically stable, pending results of repeat UA/UC.
[2018-08-15] MEDS: Donepezil TAB* 5 MG PO SCH (17:48)
[2018-08-15] MEDS ORDERED: Ondansetron INJ* 2 MG/ML VIAL IV PRN (19:22)
[2018-08-16] MEDS: Insulin LISPRO* 1 UNITS UNIT SUBCUT SCH ×4 (08:00→20:30)
[2018-08-16 08:20] LABS: Hematocrit 27 % (35-47); Mean Corpuscular HGB Conc 33 g/dl (31-36); Mean Corpuscular Hemoglobin 31 pg (27-31); Mean Corpuscular Volume 94 fL (80-97); Mean Platelet Volume 10.1 um3 (7.4-10.4); Platelet Count 215 10^3/ul (150-450); Red Blood Count 2.91 10^6/ul (4.00-5.40); Red Cell Distribution Width 18 % (10.5-15); White Blood Count 2.8 10^3/ul (3.5-10.8)
[2018-08-16] MEDS: Insulin GLARGINE(*) 1 UNITS UNIT SUBCUT SCH (08:28)
[2018-08-16 08:29] LABS: EGFR Non-African American 35.3 (>60)
[2018-08-16] MEDS: Amiodarone TAB* 200 MG PO SCH (08:31)
[2018-08-16] MEDS: Aspirin EC TAB* 81 MG TAB.EC PO SCH (08:31)
[2018-08-16] MEDS: amLODIPine TAB* 5 MG PO SCH (08:31)
[2018-08-16] MEDS: Carvedilol TAB* 6.25 MG PO SCH ×2 (08:32→20:31)
[2018-08-16] MEDS: CMCS Cefdinir cap (NF) 300 MG CAP PO SCH (08:32)
[2018-08-16] MEDS: Folic Acid TAB* 1 MG PO SCH (08:32)
[2018-08-16] MEDS: Zinc Oxide 40% (TOPICAL)* TUBE TOPICAL SCH ×2 (08:32→20:32)
[2018-08-16] MEDS: Omeprazole CAP* 20 MG PO SCH (08:32)
[2018-08-16 09:57] LABS: ABS Basophils 0.1 10^3/ul (0-0.2); ABS Eosinophils 0.2 10^3/ul (0-0.6); ABS Lymphocytes 1.1 10^3/ul (1.0-4.8); ABS Monocytes 0.6 10^3/ul (0-0.8); ABS Neutrophils 0.8 10^3/ul (1.5-7.7); ABS Nucleated RBC 0 10^3/ul; Eosinophil % 8.2 % (0-6); Nucleated Red Blood Cells % 0.3
--- NOTE | 2018-08-16 15:30 | PN ---
Hospitalist Progress Note Date of Service: 08/16/18 I was alerted by Jolie's RN, Elan, that she became more sleepy this afternoon after I had seen her this morning. BG was 150 and an ABG revealed a pO2 of 58, at which time O2 by NC was ordered. I came to evaluate her and she is drowsy but alerts to loud voice and responds somewhat appropriately (ie, when I say to wake up, she says "I will!") but is less responsive than when I evaluated her earlier today. Her vitals are stable. She has a very wet cough on exam also. We will switch the nasal cannula to a mask since she is breathing through her mouth, check a stat CXR, and I will call her daughter.
--- NOTE | 2018-08-16 16:19 | RAD ---
HISTORY: hypoxia COMPARISONS: August 12, 2018 VIEWS: 1: frontal AP view of the chest at 3:59 PM FINDINGS: LINES AND TUBES: None. CARDIOMEDIASTINAL SILHOUETTE: The cardiac silhouette is enlarged. The cardiomediastinal silhouette is otherwise normal for portable technique. PLEURA: The costophrenic angles are sharp. No pleural abnormalities are noted. LUNG PARENCHYMA: There is a diffuse reticular pattern with indistinct pulmonary vessels. ABDOMEN: The upper abdomen is clear. There is no subphrenic gas. BONES AND SOFT TISSUES: The patient is status post right shoulder arthroplasty. There is diffuse osteopenia. IMPRESSION: CARDIOMEGALY WITH PULMONARY INTERSTITIAL EDEMA
--- NOTE | 2018-08-16 17:35 | PN ---
Hospitalist Progress Note Date of Service: 08/16/18 Left a voicemail for her daughter Pam to update her. Requested a call back.
--- NOTE | 2018-08-16 17:47 | PN ---
Subjective Date of Service: 08/16/18 Interval History: When I saw Jolie this morning, she alerted to voice, said her name is Corey, but did not answer any more questions other than to deny pain. She falls asleep frequently. No other events were reported from overnight. Family History: Unchanged from Admission Social History: Unchanged from Admission Past Medical History: Unchanged from Admission Objective Active Medications: Acetaminophen (Tylenol Supp*) 650 mg AL Q6H PRN PRN Reason: FEVER/PAIN Last Admin: 08/12/18 17:59 Dose: 650 mg Amiodarone HCl (Cordarone Tab*) 100 mg PO QAM [facility] Last Admin: 08/16/18 08:31 Dose: 100 mg Amlodipine Besylate (Norvasc Tab*) 2.5 mg PO DAILY [facility] Last Admin: 08/16/18 08:31 Dose: 2.5 mg Aspirin (Aspirin Ec Tab*) 81 mg PO DAILY [facility] Last Admin: 08/16/18 08:31 Dose: 81 mg Carvedilol (Coreg Tab*) 6.25 mg PO BID [facility] Last Admin: 08/16/18 08:32 Dose: 6.25 mg Cefdinir (Cefdinir Cap (Nf)) 300 mg PO DAILY [facility] Last Admin: 08/16/18 08:32 Dose: 300 mg Dextrose (D50w Syringe 50 Ml*) 12.5 gm IV PUSH .FOR FS < 60 - SS PRN PRN Reason: FS < 60 Donepezil HCl (Aricept Tab*) 10 mg PO QPM [facility] Last Admin: 08/15/18 17:48 Dose: 10 mg Folic Acid (Folvite Tab*) 1 mg PO QAM [facility] Last Admin: 08/16/18 08:32 Dose: 1 mg Insulin Glargine (Lantus(*)) 12 units SUBCUT Q24H [facility] Last Admin: 08/16/18 08:28 Dose: 12 units Insulin Human Lispro (Humalog*) 0 units SUBCUT [facility]; Protocol Last Admin: 08/16/18 17:19 Dose: Not Given Omeprazole (Prilosec Cap*) 20 mg PO DAILY [facility] Last Admin: 08/16/18 08:32 Dose: 20 mg Ondansetron HCl (Zofran Inj*) 4 mg IV Q6H PRN PRN Reason: NAUSEA Last Admin: 08/15/18 19:33 Dose: 4 mg Zinc Oxide (Zinc Oxide 40% (Topical)*) 1 applic TOPICAL BID [facility] Last Admin: 08/16/18 08:32 Dose: 1 applic Vital Signs - 8 hr 08/16/18 08/16/18 11:51 14:40 Temperature 97.3 F 96.9 F Pulse Rate 73 72 Respiratory 26 18 Rate Blood Pressure 126/52 135/54 (mmHg) O2 Sat by Pulse 89 97 Oximetry Oxygen Devices in Use Now: None Appearance: ill appearing, no distress, drowsy and alerts to voice Eyes: No Scleral Icterus Ears/Nose/Mouth/Throat: - - edentulous Neck: NL Appearance and Movements; NL JVP Respiratory: - - wet cough, rhonchi scattered Cardiovascular: - - irregular rhythm Abdominal: NL Sounds; No Tenderness; No Distention Lymphatic: No Cervical Adenopathy Extremities: No Edema Skin: No Rash or Ulcers Neurological: - - moves all extremities, withdraws to pain Result Diagrams: 08/16/18 07:42 08/16/18 07:42 Microbiology and Other Data: Microbiology 08/06/18 20:10 Urine Culture - Final Urine Escherichia Coli 08/06/18 16:32 Aerobic Blood Culture - Preliminary Blood Venous Escherichia Coli Anaerobic Blood Culture - Preliminary Escherichia Coli 08/06/18 16:32 Aerobic Blood Culture - Preliminary Blood Venous Escherichia Coli Anaerobic Blood Culture - Preliminary Escherichia Coli 08/07/18 12:50 Stool Gross Appearance - Final Stool C. difficile DNA Amplification - Final 027 Presumptive NEGATIVE Toxigenic C.diff NEGATIVE 08/06/18 23:30 Stool Gross Appearance - Final Stool C. difficile DNA Amplification - Final Stool Lactoferrin - Final 08/06/18 18:50 Nasal Screen MRSA (PCR) - Final Nasal Mrsa Not Detected 08/12/18 10:50 Urine Urine Culture - Final Staphylococcus Sciuri 08/08/18 21:09 Stool Stool Culture - Final 08/08/18 21:09 Stool Shiga Toxin I & II - Final 08/07/18 12:50 Stool Stool Gross Appearance - Final 08/07/18 12:50 Stool C. difficile DNA Amplification - Final 027 Presumptive NEGATIVE Toxigenic C.diff NEGATIVE 08/12/18 05:27 Blood Venous Aerobic Blood Culture - Preliminary 08/12/18 05:27 Blood Venous Anaerobic Blood Culture - Preliminary No Growth Day 2 No Growth Day 2 08/12/18 05:26 Blood Venous Aerobic Blood Culture - Preliminary 08/12/18 05:26 Blood Venous Anaerobic Blood Culture - Preliminary No Growth Day 2 No Growth Day 2 Assess/Plan/Problems-Billing Assessment: Ms. Messina is an 83 yo female with PMH significant for cardiomyopathy, Afib, DM, CKD-3, HTN, HLD, RA, GERD, dementia, anxiety, essential tremor who presented to the emergency room with HHS and acute renal failure. Then on 08/12 she had a fever and delirium, and was found to have sepsis with a urinary source. MRI was unremarkable. She has since become neutropenic. - Patient Problems (1) Acute respiratory failure with hypoxia Current Visit: Yes Status: Acute Code(s): J96.01 - ACUTE RESPIRATORY FAILURE WITH HYPOXIA SNOMED Code(s): 87715596 Comment: a blood gas today showed a pO2 of 58--> high Aa gradient, suggesting a vq mismatch she was reported to have vomited last night and may have had aspiration with pneumonitis continue oxy mask (2) Delirium Current Visit: Yes Status: Acute Code(s): R41.0 - DISORIENTATION, UNSPECIFIED SNOMED Code(s): 6281587 Comment: likely multifactorial but today most closely related to hypoxia improved after supplemental O2 on baseline severe dementia (3) Urinary tract infection Current Visit: Yes Status: Acute Comment: With E Coli bacteremia on admission Initially on Cipro and changed to Cefpime with persistent fevers and MS change, then changed to cefdinir after neutropenia Admission urine culture with E Coli 100K Repeat urine culture with Staph Sciuri, it appears this sample was obtained by straight cath, and this has been shown to be pathogenic -- need to discuss this with ID (4) CKD (chronic kidney disease) stage 3, GFR 30-59 ml/min Current Visit: Yes Status: Chronic Code(s): N18.3 - CHRONIC KIDNEY DISEASE, STAGE 3 (MODERATE) SNOMED Code(s): 490345791 Comment: baseline (5) DNR (do not resuscitate) Current Visit: Yes Status: Chronic (6) A-fib Current Visit: No Status: Acute Code(s): I48.91 - UNSPECIFIED ATRIAL FIBRILLATION SNOMED Code(s): 09092751 Comment: ASA, amiodarone, coreg no anticooagulation due to high fall risk (7) HTN (hypertension) Current Visit: No Status: Acute Code(s): I10 - ESSENTIAL (PRIMARY) HYPERTENSION SNOMED Code(s): 91831359 Comment: normotensive now on home meds (8) Diabetes Current Visit: No Status: Chronic Code(s): E11.9 - TYPE 2 DIABETES MELLITUS WITHOUT COMPLICATIONS SNOMED Code(s): 95784062 Comment: BG near goal now on lantus 12U daily (had not been on any meds at home) A1c 8.2 (9) Neutropenia Current Visit: Yes Status: Acute Code(s): D70.9 - NEUTROPENIA, UNSPECIFIED SNOMED Code(s): 265794303 Comment: moderate may be drug related in response to antibiotics, but also may be concerning for ongoing infection continue abx and recheck tomorrow had been pancytopenic; platelets have now recovered and anemia is improving, suggesting an improvement, with wbcs lagging Status and Disposition: Inpatient. Discharge to rehab vs Hospice when medically stable.
[2018-08-16] MEDS: Donepezil TAB* 5 MG PO SCH (17:52)
[2018-08-17 06:47] LABS: Hematocrit 25 % (35-47); Mean Corpuscular HGB Conc 33 g/dl (31-36); Mean Corpuscular Hemoglobin 31 pg (27-31); Mean Corpuscular Volume 93 fL (80-97); Mean Platelet Volume 9.6 um3 (7.4-10.4); Platelet Count 309 10^3/ul (150-450); Red Blood Count 2.64 10^6/ul (4.00-5.40); Red Cell Distribution Width 18 % (10.5-15); White Blood Count 2.9 10^3/ul (3.5-10.8)
[2018-08-17 06:51] LABS: INR 1.1 (0.77-1.02)
[2018-08-17 06:58] LABS: ABS Neutrophils 0.8 10^3/ul (1.5-7.7)
[2018-08-17 07:08] LABS: EGFR Non-African American 30.8 (>60)
[2018-08-17 07:21] LABS: ABS Basophils 0.1 10^3/ul (0-0.2); ABS Neutrophils 0.7 10^3/ul (1.5-7.7); Monocytes % 15 % (0-7)
[2018-08-17] MEDS: Insulin LISPRO* 1 UNITS UNIT SUBCUT SCH ×4 (07:47→21:57)
[2018-08-17] MEDS: CMCS Cefdinir cap (NF) 300 MG CAP PO SCH (08:53)
[2018-08-17] MEDS: Insulin GLARGINE(*) 1 UNITS UNIT SUBCUT SCH (08:53)
[2018-08-17] MEDS: Amiodarone TAB* 200 MG PO SCH (08:54)
[2018-08-17] MEDS: Omeprazole CAP* 20 MG PO SCH (08:54)
[2018-08-17] MEDS: amLODIPine TAB* 5 MG PO SCH (08:54)
[2018-08-17] MEDS: Carvedilol TAB* 6.25 MG PO SCH ×2 (08:54→21:58)
[2018-08-17] MEDS: Folic Acid TAB* 1 MG PO SCH (08:54)
[2018-08-17] MEDS: Aspirin EC TAB* 81 MG TAB.EC PO SCH (08:54)
[2018-08-17] MEDS: Zinc Oxide 40% (TOPICAL)* TUBE TOPICAL SCH ×2 (08:56→21:56)
--- NOTE | 2018-08-17 10:15 | PN ---
Subjective Date of Service: 08/17/18 Interval History: Jolie had another episode of unresponsiveness overnight when her nurse could not arouse her except to sternal rub. Dr. Talamantes was paged and when he arrived to the bedside she was awake. Tmax was 100.1 Her O2 was turned up to 6L overnight when her o2 dropped to 89% on 4L. Otherwise her night was uneventful. This morning when I went in to see her, the aides are changing her and she is awake and occasionally talks with them, mostly to express pain when she is moved. She responds to my voice but does not follow commands. Review of systems is unable to be obtained. Family History: Unchanged from Admission Social History: Unchanged from Admission Past Medical History: Unchanged from Admission Objective Active Medications: Acetaminophen (Tylenol Supp*) 650 mg ME Q6H PRN PRN Reason: FEVER/PAIN Last Admin: 08/12/18 17:59 Dose: 650 mg Amiodarone HCl (Cordarone Tab*) 100 mg PO QAM [facility] Last Admin: 08/17/18 08:54 Dose: 100 mg Amlodipine Besylate (Norvasc Tab*) 2.5 mg PO DAILY [facility] Last Admin: 08/17/18 08:54 Dose: 2.5 mg Aspirin (Aspirin Ec Tab*) 81 mg PO DAILY [facility] Last Admin: 08/17/18 08:54 Dose: 81 mg Carvedilol (Coreg Tab*) 6.25 mg PO BID [facility] Last Admin: 08/17/18 08:54 Dose: 6.25 mg Dextrose (D50w Syringe 50 Ml*) 12.5 gm IV PUSH .FOR FS < 60 - SS PRN PRN Reason: FS < 60 Donepezil HCl (Aricept Tab*) 10 mg PO QPM [facility] Last Admin: 08/16/18 17:52 Dose: 10 mg Folic Acid (Folvite Tab*) 1 mg PO QAM [facility] Last Admin: 08/17/18 08:54 Dose: 1 mg Insulin Glargine (Lantus(*)) 12 units SUBCUT Q24H [facility] Last Admin: 08/17/18 08:53 Dose: 12 units Insulin Human Lispro (Humalog*) 0 units SUBCUT ACHS [facility]; Protocol Last Admin: 08/17/18 07:47 Dose: Not Given Omeprazole (Prilosec Cap*) 20 mg PO DAILY [facility] Last Admin: 08/17/18 08:54 Dose: 20 mg Ondansetron HCl (Zofran Inj*) 4 mg IV Q6H PRN PRN Reason: NAUSEA Last Admin: 08/15/18 19:33 Dose: 4 mg Zinc Oxide (Zinc Oxide 40% (Topical)*) 1 applic TOPICAL BID [facility] Last Admin: 08/17/18 08:56 Dose: 1 applic Vital Signs - 8 hr 08/17/18 08/17/18 08/17/18 03:37 07:16 08:00 Temperature 100.1 F Pulse Rate 82 73 Respiratory 22 18 18 Rate Blood Pressure 140/53 115/42 (mmHg) O2 Sat by Pulse 99 97 Oximetry Oxygen Devices in Use Now: OxyMask Appearance: alerts to voice, no distress, breathing comfortably Eyes: No Scleral Icterus Ears/Nose/Mouth/Throat: - - edentulous Neck: NL Appearance and Movements; NL JVP Respiratory: Symmetrical Chest Expansion and Respiratory Effort Cardiovascular: - - irregular rhythm Abdominal: NL Sounds; No Tenderness; No Distention Lymphatic: No Cervical Adenopathy Extremities: No Edema Neurological: - - moves all extremities, withdraws Result Diagrams: 08/17/18 06:22 08/17/18 06:22 Microbiology and Other Data: Microbiology 08/06/18 20:10 Urine Culture - Final Urine Escherichia Coli 08/06/18 16:32 Aerobic Blood Culture - Preliminary Blood Venous Escherichia Coli Anaerobic Blood Culture - Preliminary Escherichia Coli 08/06/18 16:32 Aerobic Blood Culture - Preliminary Blood Venous Escherichia Coli Anaerobic Blood Culture - Preliminary Escherichia Coli 08/07/18 12:50 Stool Gross Appearance - Final Stool C. difficile DNA Amplification - Final 027 Presumptive NEGATIVE Toxigenic C.diff NEGATIVE 08/06/18 23:30 Stool Gross Appearance - Final Stool C. difficile DNA Amplification - Final Stool Lactoferrin - Final 08/06/18 18:50 Nasal Screen MRSA (PCR) - Final Nasal Mrsa Not Detected 08/12/18 10:50 Urine Urine Culture - Final Staphylococcus Sciuri 08/08/18 21:09 Stool Stool Culture - Final 08/08/18 21:09 Stool Shiga Toxin I & II - Final 08/07/18 12:50 Stool Stool Gross Appearance - Final 08/07/18 12:50 Stool C. difficile DNA Amplification - Final 027 Presumptive NEGATIVE Toxigenic C.diff NEGATIVE 08/12/18 05:27 Blood Venous Aerobic Blood Culture - Preliminary 08/12/18 05:27 Blood Venous Anaerobic Blood Culture - Preliminary No Growth Day 2 No Growth Day 2 08/12/18 05:26 Blood Venous Aerobic Blood Culture - Preliminary 08/12/18 05:26 Blood Venous Anaerobic Blood Culture - Preliminary No Growth Day 2 No Growth Day 2 Assess/Plan/Problems-Billing Assessment: Ms. Messina is an 83 yo female with PMH significant for cardiomyopathy, Afib, DM, CKD-3, HTN, HLD, RA, GERD, dementia, anxiety, essential tremor who presented to the emergency room with HHS and acute renal failure and sepsis with a urinary source and gnr bacteremia. Then on 08/12 she had a fever and delirium.. MRI was unremarkable. She has since become neutropenic. - Patient Problems (1) Acute respiratory failure with hypoxia Current Visit: Yes Status: Acute Code(s): J96.01 - ACUTE RESPIRATORY FAILURE WITH HYPOXIA SNOMED Code(s): 62047296 Comment: a blood gas yesterday showed a pO2 of 58--> high Aa gradient, suggesting a vq mismatch she was reported to have vomited previously and may have had aspiration with pneumonitis continue supplemental O2 and attempt to wean today (2) Urinary tract infection Current Visit: Yes Status: Acute Comment: It appears she has been on abx since admission --> a repeat UA on 08/12 after inital abx therapy was still positive Will DC abx today given neutropenia and see if it improves, and also repeat blood cultures E Coli bacteremia was present on admission Repeat urine culture with Staph Sciuri, it appears this sample was obtained by straight cath, and this has been shown to be pathogenic -- need to discuss this with ID on Saturday (3) Delirium Current Visit: Yes Status: Acute Code(s): R41.0 - DISORIENTATION, UNSPECIFIED SNOMED Code(s): 4769797 Comment: likely multifactorial but yesterday most closely related to hypoxia improved after supplemental O2 on baseline severe dementia (4) CKD (chronic kidney disease) stage 3, GFR 30-59 ml/min Current Visit: Yes Status: Chronic Code(s): N18.3 - CHRONIC KIDNEY DISEASE, STAGE 3 (MODERATE) SNOMED Code(s): 490479056 Comment: baseline (5) DNR (do not resuscitate) Current Visit: Yes Status: Chronic (6) A-fib Current Visit: No Status: Acute Code(s): I48.91 - UNSPECIFIED ATRIAL FIBRILLATION SNOMED Code(s): 51127264 Comment: ASA, amiodarone, coreg no anticooagulation due to high fall risk (7) HTN (hypertension) Current Visit: No Status: Acute Code(s): I10 - ESSENTIAL (PRIMARY) HYPERTENSION SNOMED Code(s): 22255099 Comment: normotensive now on home meds (8) Diabetes Current Visit: No Status: Chronic Code(s): E11.9 - TYPE 2 DIABETES MELLITUS WITHOUT COMPLICATIONS SNOMED Code(s): 03103620 Comment: BG near goal now on lantus 12U daily (had not been on any meds at home) A1c 8.2 (9) Neutropenia Current Visit: Yes Status: Acute Code(s): D70.9 - NEUTROPENIA, UNSPECIFIED SNOMED Code(s): 170007067 Comment: moderate may be drug related in response to antibiotics, but also may be concerning for ongoing infection DC abx today and recheck tomororw had been pancytopenic; platelets have now recovered and anemia is improving, suggesting an improvement, with wbcs lagging Status and Disposition: will try to reach her daughter Pam today to discuss dispo planning
--- NOTE | 2018-08-17 15:57 | PN ---
Hospitalist Progress Note Date of Service: 08/17/18 I spoke with Jolie's daughter Pam at the bedside and updated her. Interestingly, she shared with me that she has idiopathic neutropenia herself. She emphasized her desire for her mom to receive conservative therapies and to minimize invasive or painful treatments at this point. She acknowledges the severity of her dementia, and I explained that such a severe illness like she had at admission is a major setback for someone with dementia, and it's hard to know at this point how well she will recover from this hospitalization. She agrees and wants the goal to be to get her to [facility] as soon as possible. She does not want to pursue hospice at this time, and Jolie probably wouldn't qualify anyway. In keeping with her wishes, we will minimize any further invasive testing or procedures and aim to get her to the long term early this week.
[2018-08-17] MEDS: Donepezil TAB* 5 MG PO SCH (17:37)
[2018-08-18] MEDS: Acetaminophen SUPP* 650 MG SUPP PR PRN (00:47)
[2018-08-18 07:14] LABS: EGFR Non-African American 29.7 (>60)
[2018-08-18] MEDS: Insulin GLARGINE(*) 1 UNITS UNIT SUBCUT SCH (09:06)
[2018-08-18] MEDS: Insulin LISPRO* 1 UNITS UNIT SUBCUT SCH ×4 (09:06→22:20)
[2018-08-18] MEDS: amLODIPine TAB* 5 MG PO SCH (09:07)
[2018-08-18] MEDS: Carvedilol TAB* 6.25 MG PO SCH ×2 (09:07→22:20)
[2018-08-18] MEDS: Aspirin EC TAB* 81 MG TAB.EC PO SCH (09:07)
[2018-08-18] MEDS: Omeprazole CAP* 20 MG PO SCH (09:08)
[2018-08-18] MEDS: Zinc Oxide 40% (TOPICAL)* TUBE TOPICAL SCH ×2 (09:08→22:29)
[2018-08-18] MEDS: Folic Acid TAB* 1 MG PO SCH (09:08)
[2018-08-18] MEDS: Amiodarone TAB* 200 MG PO SCH (09:08)
--- NOTE | 2018-08-18 16:02 | PN ---
Subjective Date of Service: 08/18/18 Interval History: Patient was seen and examined earlier today. Reports doing well, has no complaints. Spoke with her daughter, Pam, to update her with health status and discharge plans. Unfortunately, [facility] had multiple admissions today, for which discharge plans were postponed until tomorrow. Breathing with no difficulty, denies chest pain or SOB. Family History: Unchanged from Admission Social History: Unchanged from Admission Past Medical History: Unchanged from Admission Objective Active Medications: Acetaminophen (Tylenol Supp*) 650 mg [place] Q6H PRN PRN Reason: FEVER/PAIN Last Admin: 08/18/18 00:47 Dose: 650 mg Amiodarone HCl (Cordarone Tab*) 100 mg PO QAM [facility] Last Admin: 08/18/18 09:08 Dose: 100 mg Amlodipine Besylate (Norvasc Tab*) 2.5 mg PO DAILY [facility] Last Admin: 08/18/18 09:07 Dose: 2.5 mg Aspirin (Aspirin Ec Tab*) 81 mg PO DAILY [facility] Last Admin: 08/18/18 09:07 Dose: 81 mg Carvedilol (Coreg Tab*) 6.25 mg PO BID [facility] Last Admin: 08/18/18 09:07 Dose: 6.25 mg Dextrose (D50w Syringe 50 Ml*) 12.5 gm IV PUSH .FOR FS < 60 - SS PRN PRN Reason: FS < 60 Donepezil HCl (Aricept Tab*) 10 mg PO QPM [facility] Last Admin: 08/17/18 17:37 Dose: 10 mg Folic Acid (Folvite Tab*) 1 mg PO QAM [facility] Last Admin: 08/18/18 09:08 Dose: 1 mg Insulin Glargine (Lantus(*)) 12 units SUBCUT Q24H [facility] Last Admin: 08/18/18 09:06 Dose: 12 units Insulin Human Lispro (Humalog*) 0 units SUBCUT ACHS [facility]; Protocol Last Admin: 08/18/18 13:05 Dose: 2 unit Omeprazole (Prilosec Cap*) 20 mg PO DAILY [facility] Last Admin: 08/18/18 09:08 Dose: 20 mg Ondansetron HCl (Zofran Inj*) 4 mg IV Q6H PRN PRN Reason: NAUSEA Last Admin: 08/15/18 19:33 Dose: 4 mg Zinc Oxide (Zinc Oxide 40% (Topical)*) 1 applic TOPICAL BID [facility] Last Admin: 08/18/18 09:08 Dose: 1 applic Oxygen Devices in Use Now: None, OxyMask Appearance: Appears comfortable, sitting in her chair, in NAD. Eyes: No Scleral Icterus, PERRLA Ears/Nose/Mouth/Throat: Clear Oropharnyx, Mucous Membranes Moist Neck: NL Appearance and Movements; NL JVP, Trachea Midline Respiratory: Symmetrical Chest Expansion and Respiratory Effort, Clear to Auscultation Cardiovascular: NL Sounds; No Murmurs; No JVD, RRR Abdominal: NL Sounds; No Tenderness; No Distention Extremities: No Edema Neurological: - - Alert and oriented to self only. Result Diagrams: 08/17/18 06:22 08/18/18 06:41 Additional Lab and Data: . Microbiology and Other Data: Diagnostic Imaging: . EKG Data: . Assess/Plan/Problems-Billing Assessment: Ms. Messina is an 83 yo female with PMH significant for cardiomyopathy, Afib, DM, CKD-3, HTN, HLD, RA, GERD, dementia, anxiety, essential tremor who presented to the emergency room with HHS and acute renal failure and sepsis with a urinary source and gnr bacteremia. Then on 08/12 she had a fever and delirium.. MRI was unremarkable. She has since become neutropenic. - Patient Problems (1) Acute respiratory failure with hypoxia Current Visit: Yes Status: Acute Comment: - Maintaining good O2 saturation on room air. - Supportive care and continue conservative measures per daughter and patient wishes (2) Urinary tract infection Current Visit: Yes Status: Acute Comment: It appears she has been on abx since admission --> a repeat UA on 08/12 after inital abx therapy was still positive Abx d/c'ed, no leukocytosis or fever yesterday or today E Coli bacteremia was present on admission Repeat urine culture with Staph Sciuri, it appears this sample was obtained by straight cath, and this has been shown to be pathogenic -- need to discuss this with ID on Saturday - Discussed with ID, recommended no further treatment, likely non-sterile spicement collected, or possible colonization. - Asymptomatic (3) Delirium Current Visit: Yes Status: Acute Comment: likely multifactorial but yesterday most closely related to hypoxia improved after supplemental O2 on baseline severe dementia (4) Neutropenia Current Visit: Yes Status: Acute Comment: moderate may be drug related in response to antibiotics, but also may be concerning for ongoing infection stable on CBC recheck today, after Abx d/c'ed had been pancytopenic; platelets have now recovered and anemia is improving, suggesting an improvement, with wbcs lagging (5) CKD (chronic kidney disease) stage 3, GFR 30-59 ml/min Current Visit: Yes Status: Chronic Comment: baseline (6) A-fib Current Visit: No Status: Acute Comment: ASA, amiodarone, coreg no anticooagulation due to high fall risk (7) Diabetes Current Visit: No Status: Chronic Comment: BG near goal now on lantus 12U daily (had not been on any meds at home) A1c 8.2 (8) HTN (hypertension) Current Visit: No Status: Acute Comment: normotensive now on home meds (9) DVT prophylaxis Current Visit: No Status: Acute Comment: - Chemical DVT prophylaxis held d/t thrombocytopenia - SCDs (10) DNR (do not resuscitate) Current Visit: Yes Status: Chronic Status and Disposition: Inpatient. Plans for discharge to [facility] tomorrow.
[2018-08-18] MEDS: Donepezil TAB* 5 MG PO SCH (17:36)
[2018-08-19 08:34] VITALS: BP 135/52
[2018-08-19] MEDS: Insulin LISPRO* 1 UNITS UNIT SUBCUT SCH (08:35)
[2018-08-19] MEDS: Folic Acid TAB* 1 MG PO SCH (08:36)
[2018-08-19] MEDS: amLODIPine TAB* 5 MG PO SCH (08:36)
[2018-08-19] MEDS: Insulin GLARGINE(*) 1 UNITS UNIT SUBCUT SCH (08:36)
[2018-08-19] MEDS: Amiodarone TAB* 200 MG PO SCH (08:36)
[2018-08-19] MEDS: Omeprazole CAP* 20 MG PO SCH (08:36)
[2018-08-19] MEDS: Aspirin EC TAB* 81 MG TAB.EC PO SCH (08:36)
[2018-08-19] MEDS: Carvedilol TAB* 6.25 MG PO SCH (08:36)
[2018-08-19] MEDS: Zinc Oxide 40% (TOPICAL)* TUBE TOPICAL SCH (08:47)
[2018-08-19 09:45] LABS: Hematocrit 25 % (35-47); Hemoglobin 8.1 g/dl (12.0-16.0); Mean Corpuscular HGB Conc 33 g/dl (31-36); Mean Corpuscular Hemoglobin 30 pg (27-31); Mean Corpuscular Volume 93 fL (80-97); Mean Platelet Volume 8.6 um3 (7.4-10.4); Platelet Count 624 10^3/ul (150-450); Red Blood Count 2.68 10^6/ul (4.00-5.40); Red Cell Distribution Width 18 % (10.5-15); White Blood Count 5.2 10^3/ul (3.5-10.8)
[2018-08-19 09:49] LABS: ABS Basophils 0 10^3/ul (0-0.2); ABS Eosinophils 0.1 10^3/ul (0-0.6); ABS Lymphocytes 1.3 10^3/ul (1.0-4.8); ABS Monocytes 1.2 10^3/ul (0-0.8); ABS Neutrophils 2.5 10^3/ul (1.5-7.7); ABS Nucleated RBC 0 10^3/ul; Eosinophil % 2.8 % (0-6); Lymphocyte % 25.1 % (25-47); Nucleated Red Blood Cells % 0.2
--- NOTE | 2018-08-19 10:31 | DS ---
DISCHARGE SUMMARY: DATE OF ADMISSION: 08/06/18 DATE OF DISCHARGE: 08/19/18 PATIENT OF: Admitting hospitalist Dr. Caleb Hawley. ATTENDING HOSPITALIST: While patient is here is Dr. Tonya Ortiz.* (DICTATED BY ELISEO KIDD) ADMISSION DIAGNOSES: 1. Altered mental status. 2. Cardiomyopathy. 3. Atrial fibrillation. 4. Diabetes mellitus. 5. Chronic kidney disease at stage 3. 6. Hypertension. 7. Hyperlipidemia. 8. Rheumatoid arthritis. 9. Gastroesophageal reflux disease. 10. Dementia. 11. Anxiety. 12. Essential tremors. 13. Osteoporosis. 14. Recurrent urinary tract infections. DISCHARGE DIAGNOSES: 1. Altered mental status. 2. Cardiomyopathy. 3. Atrial fibrillation. 4. Diabetes mellitus. 5. Chronic kidney disease at stage 3. 6. Hypertension. 7. Hyperlipidemia. 8. Rheumatoid arthritis. 9. Gastroesophageal reflux disease. 10. Dementia. 11. Anxiety. 12. Essential tremors. 13. Osteoporosis. 14. Recurrent urinary tract infections. CONSULTATIONS: Dr. Darren Breen, skin installer. PROCEDURES: None. HISTORY OF PRESENT ILLNESS: Mrs. Messina is an 83-year-old female with multiple complicated medical history including diabetes mellitus type 2 as well as chronic kidney disease and advanced dementia, who had been admitted to the hospital before with complaints of urinary tract infection. The patient lives at [facility] in [place] and according to nursing staff notes, she had "a GI bug" started on Saturday prior to her admission causing her diarrhea and unable to walk with diaphoresis and generalized weakness. She was also found to have elevated blood glucose with fingerstick up to 800, for which she was sent to the emergency room for evaluation. She was subsequently placed on insulin drip as well as a bolus of IV fluid and was admitted under hospitalist services for further evaluation. HOSPITAL COURSE: The patient was admitted to the ICU initially for her hyperosmolar hyperglycemia and started on insulin drip. Her blood glucose level eventually became to acceptable level and she was transferred back to the medical floor. Given her acute renal failure on top of her chronic kidney disease, consultation by Dr. Breen was obtained on 08/08/18. He recommended hydration of the patient with water on a regular basis. She had a CT scan of the abdomen and pelvis given her diarrhea and probable dehydration that led to her hyperglycemia. It showed air fluid level in the nondistended colon and no evidence of colitis was noted. The patient also had laboratory workup that revealed initially leukocytosis with urinalysis showing UTI, for which she was treated with intravenous antibiotics for the time being. Her laboratory workup eventually showed neutropenia with white count as low as 2.7 that started to trend up gradually prior to discharge. She was clinically stable and continued to improve on a daily basis. We had multiple discussions with her daughter regarding health care plans and how aggressive she would like to be taking care of patient. The daughter understood that given her advanced age and dementia, she emphasized the fact for her mom to receive conservative therapies and to minimize any invasive or painful treatment at that point. The patient again appeared to improve clinically on a daily basis. PT and OT evaluation was obtained to get her out of bed and to anticipate her discharge to a nursing facility. MRI of the brain was done during her admission that showed chronic ischemic white matter changes with no evidence of intracranial mass or hemorrhage. A transthoracic echocardiogram was also done during her admission given her history of atrial fibrillation for which she has never been on any anticoagulation therapy due to her risk of fall. Her echocardiogram showed good ejection fraction estimated at 55 to 60% with mild mitral regurgitation and no evidence of any left ventricular hypertrophy or aortic stenosis. Again the patient appeared to be clinically improving. ID consultation was also obtained since her urine grew Staphylococcus that was resistant to all antibiotics. Given the fact she was on cephalosporin for an extended period of time, recommendation was made to discontinue her antibiotics all together since she was probably colonized with this bacteria. It is believed that antibiotic therapy might have caused her neutropenia and prior to discharge, we will obtain another CBC with differential to assess her absolute neutrophils in case if she needs to be in isolation in a [facility]. Again we had this discussion with her daughter yesterday regarding medical management and she wishes to keep her mother do not resuscitate and to follow absolute conservative measures with no invasive procedure for which we are planning on discharging her to [facility] this morning. DISCHARGE MEDICATIONS: Include: 1. Tylenol 500 mg p.o. q.6 hours as needed for fever or pain. 2. Amiodarone 100 mg p.o. daily. 3. Norvasc 5 mg p.o. daily. 4. Aspirin 81 mg p.o. daily. 5. Coreg 6.25 mg p.o. b.i.d. 6. Vitamin D 5000 units p.o. daily. 7. Aricept 10 mg p.o. daily. 8. Folic acid 1 mg p.o. daily. 9. Lasix 20 mg p.o. daily. 10. Glipizide 10 mg p.o. b.i.d. 11. Robitussin 10 mL p.o. q.4 hours as needed for cough. 12. Imodium 2 mg p.o. daily as needed for diarrhea. 13. Methotrexate 7.5 mg p.o. weekly. 14. Omeprazole 20 mg p.o. daily. 15. Paxil 10 mg p.o. every other day. 16. Zinc oxide 40% topical cream apply to affected area as directed. 17. Zofran 4 mg p.o. q.6 hours as needed for nausea. ELISEO KIDD [id number]/[facility] #: [id number] KRISTY
[2018-08-19 10:41] LABS: ABS Basophils 0 10^3/ul (0-0.2); ABS Neutrophils 2.5 10^3/ul (1.5-7.7); Monocytes % 21 % (0-7)
== END 2018-08-19 12:10 | DRG 871 ==
LOC: ED 14:44 → ICU 17:22 → MED 08-07 10:41
PROVIDERS: ADMIT Student in an Organized Health Care Education/Training Program; ATTEND Internal Medicine
DX: A41.9 Sepsis, unspecified organism (principal); R40.2312 Coma scale, best motor response, none, at arrival to emergency department; J96.01 Acute respiratory failure with hypoxia; N17.9 Acute kidney failure, unspecified; E87.2 Acidosis; N39.0 Urinary tract infection, site not specified; I42.9 Cardiomyopathy, unspecified; I13.0 Hypertensive heart and chronic kidney disease with heart failure and stage 1 through stage 4 chronic kidney disease, or unspecified chronic kidney disease; E87.0 Hyperosmolality and hypernatremia; E11.65 Type 2 diabetes mellitus with hyperglycemia; E11.22 Type 2 diabetes mellitus with diabetic chronic kidney disease; N18.3 Chronic kidney disease, stage 3 (moderate); R74.8 Abnormal levels of other serum enzymes; I48.91 Unspecified atrial fibrillation; K21.9 Gastro-esophageal reflux disease without esophagitis; M06.9 Rheumatoid arthritis, unspecified; E78.5 Hyperlipidemia, unspecified; M81.0 Age-related osteoporosis without current pathological fracture; Z96.611 Presence of right artificial shoulder joint; F41.9 Anxiety disorder, unspecified; Z66 Do not resuscitate; G30.9 Alzheimer's disease, unspecified; F02.80 Dementia in other diseases classified elsewhere, unspecified severity, without behavioral disturbance, psychotic disturbance, mood disturbance, and anxiety; I50.9 Heart failure, unspecified; F32.9 Major depressive disorder, single episode, unspecified; R40.2132 Coma scale, eyes open, to sound, at arrival to emergency department; R40.2242 Coma scale, best verbal response, confused conversation, at arrival to emergency department; I45.81 Long QT syndrome; E86.0 Dehydration; I34.0 Nonrheumatic mitral (valve) insufficiency; B95.8 Unspecified staphylococcus as the cause of diseases classified elsewhere; K52.9 Noninfective gastroenteritis and colitis, unspecified; R33.9 Retention of urine, unspecified; D69.6 Thrombocytopenia, unspecified; R41.0 Disorientation, unspecified; Z88.4 Allergy status to anesthetic agent; Z98.42 Cataract extraction status, left eye; Z98.41 Cataract extraction status, right eye; Z87.891 Personal history of nicotine dependence; Z79.82 Long term (current) use of aspirin; Z79.84 Long term (current) use of oral hypoglycemic drugs
CPT/HCPCS: 36415; 36600; 70450; 70551; 71045; 74176; 76775; 80048; 80053; 81003; 81015; 82570; 82803; 83036; 83605; 83630; 83735; 83935; 84100; 84132; 84133; 84300; 84443; 84484; 85025; 85027; 85060; 85610; 86022; 87040; 87045; 87046; 87077; 87086; 87106; 87186; 87205; 87493; 87641; 87899; 93005; 93306; 99285; A9270-GY; G8978-GP-CL; G8979-GP-CI; G8987-GO-CM; G8988-GO-CK; J0692; J0696; J0744; J1650; J1815; J2405; J3475; J3480